=== PATIENT | male | born 1935 | race Caucasian/White ===

== ENCOUNTER 2017-01-01 17:07 | Inpatient (IN) | payer MEDICARE, MEDICAID ==
--- NOTE | 2017-01-01 19:03 | ED Physician Chart ---
Chief Complaint/HPI - Patient Information Date Seen:: 01/01/17 Time Seen:: 18:50 Chief Complaint:: increased confusion and increased aggressive behavior History of Present Illness:: At the patient's [place] [facility] facility is apparently been exhibiting increased confusion and increased aggressive behavior for last 4 days. Allergies:: Allergies Allergy/AdvReac Type Severity Reaction Status Date / Time No Known Allergies Allergy Verified 01/01/17 17:35 Vitals:: Vital Signs - 8 hr 01/01/17 17:10 Temp 97.9 F HR 67 RR 18 BP 127/49 O2 Sat % 99 Historian:: Patient Review:: Nurse's Note Reviewed, Transfer documents Reviewed Review of Systems - Review of Systems General/Constitutional: No fever, No chills Skin: No skin lesions Head: No headache Eyes: No loss of vision ENT: No earache Neck: No neck pain Cardio Vascular: No chest pain Pulmonary: No SOB GI: No nausea, No vomiting, No diarrhea Musculoskeletal: No bone or joint pain Endocrine: No polyuria Psychiatric: Prior psych history Hematopoietic: No bruising Allergic/Immuno: No urticaria Neurological: No syncope Past Medical History - Past Medical History Past Medical History: HTN, Other (anemia; dementia; Alzheimer's disease; schizophrenia; major depression; his IV) Family History: Other (not available) Social History: Care Facility Surgical History: other (unavailable) Psychiatricy History: Depression, Schizophrenia, Dementia Medication: Reviewed Family Medical History - Family Member Mother History Unknown: Yes Physical Exam - Physical Examination General/Constitutional: Well-developed, well-nourished, Alert, No distress, Non- toxic appearing Other Gen/Cons comments:: Confused; patient states the year is 2014 Head: Atraumatic Eyes: Lids, conjuctiva normal, PERRL Other Skin comments:: Maculopapular rash present on the anterior torso but not on face or neck ENMT: External ears, nose nl Neck: No nuchal rigidity Respiratory: Nl effort/Exclusion, Clear to Auscultation Cardio Vascular: RRR GI: No tenderness/rebounding/guarding, No organomegaly Extremities: Normal digits & nails Neuro/Psych: No focal deficits Misc: No paraspinal tenderness Labs/Radiology/EKG Results - Lab Results Results: Laboratory Results - last 24 hr 01/01/17 01/01/17 01/01/17 18:10 18:10 18:10 WBC 15.2 H RBC 3.81 Hgb 12.1 L Hct 35.3 L MCV 92.6 MCH 31.8 H MCHC Differential 34.4 RDW 14.5 Plt Count 191 MPV 8.0 Neutrophils % 86.1 H Lymphocytes % 7.2 L Monocytes % 5.4 Eosinophils % 1.0 Basophils % 0.3 Sodium 142 Potassium 4.3 Chloride 106 Carbon Dioxide 31.8 H Anion Gap 8.5 BUN < 2 L Creatinine 1.1 Est GFR ( Amer) TNP Est GFR (Non-Af Amer) TNP BUN/Creatinine Ratio 1.8 Glucose 87 Calcium 9.8 Valproic Acid 52.2 - Radiology Results Results: CXR negative ED Septic Shock - . Is Septic Shock (SBP<90, OR Lactate>4 mmol\L) present?: No - <6hrs of presentation: Vital Signs: Vital Signs - 8 hr 01/01/17 17:10 Temp 97.9 F HR 67 RR 18 BP 127/49 O2 Sat % 99 Reassessment (Disposition) - Reassessment Reassessment Condition:: Unchanged - Diagnosis Diagnosis:: Altered mental status; leukocytosis; scabies - Patient Disposition Admitted to:: Med/Surg Spoke to:: Dr. Salguero Admitting Medical Physician:: Dr. Salguero Condition at Disposition:: Stable, Unchanged
[2017-01-01 19:27] LABS: % BASOPHILS 0.3 % (0.0-2.0); % LYMPHOCYTES 7.2 % (20.0-50.0); % MONOCYTES 5.4 % (2.0-10.0); % NEUTROPHILS 86.1 % (40.0-80.0); HEMATOCRIT 35.3 % (39.0-49.0); HEMOGLOBIN 12.1 gm/dL (12.6-17.4); MEAN CELL VOLUME 92.6 fl (80-99); MEAN CORPUSCULAR HEMOGLOBIN 31.8 pg (27.0-31.0); MEAN CORPUSCULAR HGB CONC 34.4 pg (28.0-36.0); NEUTROPHILE ABSOLUTE 13.1 Th/cmm (1.8-8.0); PLATELET COUNT 191 Th/cmm (150-400); RED BLOOD COUNT 3.81 Mil/cmm (3.80-5.80); RED CELL DISTRIBUTION WIDTH 14.5 % (11.5-20.0)
[2017-01-01 19:34] LABS: WHITE BLOOD COUNT 15.2 Th/cmm (4.8-10.8)
[2017-01-01 19:51] LABS: ANION GAP 8.5 (7.0-16.0); CALCIUM SERUM 9.8 mg/dL (8.6-10.3); CARBON DIOXIDE 31.8 mEq/L (21.0-31.0); CHLORIDE 106 mEq/L (98-107); CREATININE - SERUM 1.1 mg/dL (0.7-1.3); GLUCOSE 87 mg/dL (70-105); POTASSIUM SERUM 4.3 mEq/L (3.5-5.1); SODIUM SERUM 142 mEq/L (136-145)
[2017-01-01 19:52] LABS: BUN - UREA NITROGEN < 2 mg/dL (7-25); BUN/CREATININE RATIO 1.8
[2017-01-01] MEDS ORDERED: Maalox 30 mL Cup PO PRN ×2 (22:18→22:20)
[2017-01-01] MEDS ORDERED: Magnesium Hydroxide (MOM) 30 mL UDC PO PRN (22:18)
[2017-01-01] MEDS ORDERED: Ipratropium Neb 0.5 mg/2.5 mL UD IH PRN (22:20)
[2017-01-01] MEDS ORDERED: guaiFENesin 200 MG/10 ML UDC PO PRN (22:20)
[2017-01-01] MEDS ORDERED: Albuterol Nebulizer 2.5mg/3mL IH PRN (22:20)
[2017-01-01] MEDS: D5-0.45NS 1,000 ML IV SCH (23:53)
[2017-01-02] MEDS: Levofloxacin 500mg/100mL 500 MG/100 ML BAG IV SCH ×2 (00:01→22:34)
[2017-01-02] MEDS ORDERED: Non-Formulary Item 1 EA (Amino Acids/Protein Hydrolys [Pro-Stat Awc Liquid] 30 ML) PO SCH (09:00)
--- NOTE | 2017-01-02 09:22 | Diagnostic Imaging Report ---
Portable chest x-ray HISTORY: Cough, leukocytosis No definite acute focal pulmonary processes are seen. Accentuation of the lower interstitial lung markings. Changes may be chronic. The overall heart size appears normal. Atherosclerotic calcification seen in the aorta. IMPRESSION: 1. No definite acute focal pulmonary processes 2. Accentuation of the lower interstitial lung markings. The findings may be chronic. 3. Atherosclerotic vascular changes
[2017-01-02] MEDS: Dextromethorphan/Quinidine 20mg/10mg Cap PO SCH ×2 (10:09→20:55)
--- NOTE | 2017-01-02 13:51 | Admit Criteria Form ---
Admit Criteria Forms - Admit Criteria Diagnosis: MENTAL STATUS CHANGE Clinical Indications for Inpatient Care (Place 'X' for any and all applicable criteria): Ongoing inpatient care may be needed for 1 or more of the following(1)(2)(3)(5)( 6): [X ]I. Suspected serious etiology (eg, medical disorder, [employer] event) of altered mental status [ ]II. Danger to self or others not manageable at lower level of care [ ]III. Grave disability (eg, inability to perform self care necessary at lower level of care) [ ]IV. Agitation or inappropriate behavior interfering with care for primary condition (eg, attempting to discontinue lines or drains prematurely, unable to cooperate with respiratory care) [ ]V. Delirium [A] [D][E] as described by 1 or more of the following(26): [ ]a) Delirium due to alcohol or sedative [F] withdrawal [ ]b) Delirium of uncertain etiology that has not responded to appropriate empiric treatment [ ]c) Delirium that prevents performance of a life-sustaining function (eg, feeding or hydrating oneself) [X ]. General contraindications and/or Inappropriate clinical situations for Observational Care in patients with Mental Status Change, when ANY ONE of the following is required: [ X]a) Prediction of prolongation of LOS based on ANY ONE of the following may be considered as a contraindication for observational care 2, 3, 4, 5, 6, 7, 8, 9, 10, 11 [ X]i) Age > 65 yrs. [ ]ii) Patient arriving by ambulance [ ]iii) Patient with high acuity [ ]iv) Patient requiring vital sign monitoring [ ]v) Patient on IV medication [ ]b) Systolic blood pressures greater than or equal to 180mmHg 3, 12 [ ]c) Patient with altered mental status including delirium and other alteration of consciousness, (3) [ ]d) Patient whose discharge disposition will be to a [facility] home or rehabilitation home should not be managed in Emergency Department Observation Unit. CMS rule requires 3 days hospital stay before such placement.3,13 [ ]e) Patient with failure to thrive due to broad array of etiologies 3,16,17 [ ]f) Inability to ambulate 3,14 Extended stay beyond goal length of stay for the primary condition may be needed until ALL of the following are present(3)(5): [ ]a) Underlying medical etiology of mental status change is absent, or has been established and adequately treated [ ]b) Danger to self or others is absent or manageable at lower level of care. [ ]c) Behavior crisis management, including physical or chemical restraints, is not required or available at lower level of car [ ]d) Substance or alcohol withdrawal is absent or manageable at lower level of care. [ ]e) Behavioral symptoms (eg, agitation, somnolence, inappropriate behavior) are absent, or are manageable at lower level of care. The original [facility] content created by [facility] has been revised. The portions of the content which have been revised are identified through the use of italic text or in bold, and [facility] has neither reviewed nor approved the modified material. All other unmodified content is copyright [facility]. Please see references footnoted in the original [facility] edition 2016 Admit Criteria Met?: Yes
[2017-01-02] MEDS: D5-0.45NS 1,000 ML IV SCH (15:38)
[2017-01-02 16:54] LABS: % BASOPHILS 0.7 % (0.0-2.0); % EOSINOPHILS 1.7 % (0.0-5.0); % LYMPHOCYTES 18.7 % (20.0-50.0); % MONOCYTES 7.9 % (2.0-10.0); HEMATOCRIT 33.3 % (39.0-49.0); HEMOGLOBIN 11.5 gm/dL (12.6-17.4); MEAN CELL VOLUME 92.6 fl (80-99); MEAN CORPUSCULAR HEMOGLOBIN 31.9 pg (27.0-31.0); MEAN CORPUSCULAR HGB CONC 34.4 pg (28.0-36.0); MEAN PLATELET VOLUME 7.8 fl; NEUTROPHILE ABSOLUTE 6.3 Th/cmm (1.8-8.0); PLATELET COUNT 167 Th/cmm (150-400)
[2017-01-02 16:55] LABS: WHITE BLOOD COUNT 8.8 Th/cmm (4.8-10.8)
[2017-01-02 17:12] LABS: ALB/GLOB RATIO 1.1 (1.0-1.8); ALKALINE PHOSPHATASE 57 U/L (34-104); ANION GAP 8.5 (7.0-16.0); BILIRUBIN,TOTAL 0.3 mg/dL (0.3-1.0); BUN - UREA NITROGEN 39 mg/dL (7-25); CALCIUM SERUM 8.9 mg/dL (8.6-10.3); CARBON DIOXIDE 30.7 mEq/L (21.0-31.0); CHLORIDE 106 mEq/L (98-107); GLUCOSE 112 mg/dL (70-105); POTASSIUM SERUM 4.2 mEq/L (3.5-5.1); SGOT 18 U/L (13-39); SGPT/ALT 15 U/L (7-52); SODIUM SERUM 141 mEq/L (136-145)
[2017-01-02 17:47] LABS: TSH 2.52 uIU/ml (0.34-5.60)
[2017-01-02] MEDS: Multivitamin w/ Minerals Tab PO SCH (20:50)
--- NOTE | 2017-01-02 21:22 | History & Physical ---
ADMIT DATE: 01/02/2017 CHIEF COMPLAINT: Increasing agitation and confusion. HISTORY OF PRESENT ILLNESS: This is an 81 years old male with history of dementia and gait instability, was admitted secondary to above complaints. The patient is noted to have elevated white count of ____ and acting like he is on ____. The patient admitted for further management. PAST MEDICAL HISTORY: As mentioned in history of present illness. PAST SURGICAL HISTORY: Denies surgeries in the past. ALLERGIES: No known drug allergies. MEDICATIONS: Melatonin, Tylenol, Nuedexta, Depakote, Colace, ____. FAMILY HISTORY: Noncontributory. SOCIAL HISTORY: The patient is a [facility] patient requiring 24-hour total care. REVIEW OF SYSTEMS: The patient is agitated and not answering questions, refusing ____. The patient has a ____ scar. PHYSICAL EXAMINATION: VITAL SIGNS: Blood pressure 110/45, respirations 18, pulse 60, temperature is 97.0, previously was ____. GENERAL: Elderly male who appears his stated age. NECK: Supple. No mass. LUNGS: Equal breath sounds with few rhonchi. HEART: Regular rate and rhythm ____ systolic ejection murmur. ABDOMEN: Soft, nontender, globular. EXTREMITIES: Positive excoriations. NEUROLOGIC: ____. LABORATORY DATA: WBC of ____, hemoglobin 12.1 and platelets 191. Sodium 142, potassium 4.3, BUN ____, creatinine 1.1. The rest of the labs are pending. ASSESSMENT AND PLAN: Increasing agitation, leukocytosis, possible sepsis, anemia, gait instability, dementia. We will continue the patient on IV hydration. We will also adjust the patient on psychotropic medication. We will empirically start the patient on IV antibiotic. We will refer the patient to Psychiatry. We will continue to follow the patient closely. We will keep the patient 1:1 for now. JOB# [id number]
[2017-01-03] MEDS: D5-0.45NS 1,000 ML IV SCH ×2 (06:16→18:16)
[2017-01-03] MEDS: Dextromethorphan/Quinidine 20mg/10mg Cap PO SCH ×2 (09:13→21:20)
--- NOTE | 2017-01-03 15:53 | Consultation ---
DATE OF CONSULTATION: 01/03/2017 PHYSICIAN REQUESTING CONSULTATION: Dr. Salguero. REASON FOR CONSULTATION: Agitated behavior. HISTORY OF PRESENT ILLNESS: This patient is an 81-year-old male admitted here for possible sepsis and psychiatric consultation is called to address the issue of the agitated behavior. Chart is reviewed. The patient is interviewed. The patient is getting easily frustrated and has a history of mood swings prior to the hospitalization. The chart from the [facility] is indicated that the patient has been on Nuedexta, Aricept, donepezil and Depakote 500 mg twice a day. The patient has been maintained with the medications. Sleep and appetite prior to the hospitalization are reported to be poor. The patient is getting easily irritable. When I tried to interview the patient, the patient is stating that he is okay and he is tired and does not want to talk about his problems. Details about the length of stay to [facility] is not known at this time. SUBSTANCE ABUSE HISTORY: None. PHYSICAL OR SEXUAL ABUSE HISTORY: None. LEGAL PROBLEMS: None at this time. STRENGTHS AND ASSETS: The patient seems to be motivated. MENTAL EXAMINATION: The patient is an 81-year-old, looking his stated age. The patient has paranoia and very guarded. Insight and judgment at this time are noted to be impaired. Impulse control seems to be limited. The patient's coping skills at this time are noted to be very poor. The patient is getting easily paranoid and is not able to provide much of information. The patient is currently on Depakote; however, has been able to tolerate the medications. DIAGNOSTIC IMPRESSION: 1. Psychotic disorder, unspecified. 2. Dementia and behavioral change secondary trait. PLAN: To continue the patient with Depakote and encouraged the patient to verbalize the concerns rather than to act out. Plan to closely monitor the patient's behavior and follow through. [facility]# [id number]
--- NOTE | 2017-01-03 21:11 | Internal Medicine Prog Note ---
Internal Medicine Subjective - Subjective Patient seen and examined:: with staff, chart reviewed Patient is:: awake, verbal, interactive Patient Complaints of:: congestion Per staff patient is:: no adverse event, eating well, combative, noncompliant, confused Internal Medicine Objective - Results Result Diagrams: 01/02/17 16:41 01/02/17 16:41 Recent Labs: Laboratory Last Values WBC 8.8 Th/cmm (4.8-10.8) D 01/02/17 16:41 RBC 3.60 Mil/cmm (3.80-5.80) L 01/02/17 16:41 Hgb 11.5 gm/dL (12.6-17.4) L 01/02/17 16:41 Hct 33.3 % (39.0-49.0) L 01/02/17 16:41 MCV 92.6 fl (80-99) 01/02/17 16:41 MCH 31.9 pg (27.0-31.0) H 01/02/17 16:41 MCHC Differential 34.4 pg (28.0-36.0) 01/02/17 16:41 RDW 14.0 % (11.5-20.0) 01/02/17 16:41 Plt Count 167 Th/cmm (150-400) 01/02/17 16:41 MPV 7.8 fl 01/02/17 16:41 Neutrophils % 71.0 % (40.0-80.0) 01/02/17 16:41 Lymphocytes % 18.7 % (20.0-50.0) L 01/02/17 16:41 Monocytes % 7.9 % (2.0-10.0) 01/02/17 16:41 Eosinophils % 1.7 % (0.0-5.0) 01/02/17 16:41 Basophils % 0.7 % (0.0-2.0) 01/02/17 16:41 Sodium 141 mEq/L (136-145) 01/02/17 16:41 Potassium 4.2 mEq/L (3.5-5.1) 01/02/17 16:41 Chloride 106 mEq/L (98-107) 01/02/17 16:41 Carbon Dioxide 30.7 mEq/L (21.0-31.0) 01/02/17 16:41 Anion Gap 8.5 (7.0-16.0) 01/02/17 16:41 BUN 39 mg/dL (7-25) H 01/02/17 16:41 Creatinine 1.0 mg/dL (0.7-1.3) 01/02/17 16:41 Est GFR ( Amer) TNP 01/02/17 16:41 Est GFR (Non-Af Amer) TNP 01/02/17 16:41 BUN/Creatinine Ratio 39.0 01/02/17 16:41 Glucose 112 mg/dL (70-105) H 01/02/17 16:41 Whole Bld Lactic Acid 1.27 mmol/L (0.60-1.99) 01/02/17 16:41 Calcium 8.9 mg/dL (8.6-10.3) 01/02/17 16:41 Magnesium 2.0 mg/dL (1.9-2.7) 01/02/17 16:41 Total Bilirubin 0.3 mg/dL (0.3-1.0) 01/02/17 16:41 AST 18 U/L (13-39) 01/02/17 16:41 ALT 15 U/L (7-52) 01/02/17 16:41 Alkaline Phosphatase 57 U/L (34-104) 01/02/17 16:41 Ammonia 46 umol/L (16-53) 01/02/17 16:41 B-Natriuretic Peptide 416.0 pg/mL (5.0-100.0) H 01/02/17 16:41 Total Protein 6.0 gm/dL (6.0-8.3) 01/02/17 16:41 Albumin 3.1 gm/dL (4.2-5.5) L 01/02/17 16:41 Globulin 2.9 gm/dL 01/02/17 16:41 Albumin/Globulin Ratio 1.1 (1.0-1.8) 01/02/17 16:41 TSH 2.52 uIU/ml (0.34-5.60) 01/02/17 16:41 Valproic Acid 52.2 ug/mL (50.0-100.0) 01/01/17 18:10 - Physical Exam Vitals and I&O: Vital Signs Temp 97.8 F 01/03/17 04:00 Pulse 72 01/03/17 04:00 Resp 18 01/03/17 20:00 BP 108/52 01/03/17 04:00 Pulse Ox 98 01/03/17 04:00 Intake & Output 01/03/17 01/03/17 01/04/17 06:59 18:59 06:59 Intake Total 1220 Balance 1220 Intake: Intake, IV Amount 1100 D5-0.45NS 1,000 ml @ 75 1000 mls/hr IV .[id number] [facility] Rx #:[id number] Levofloxacin 500mg/100mL 100 500 mg In 100 ml @ 100 mls/hr IV Q24HR [facility] Rx#: [id number] Oral 120 Other: # Voids 3 # Bowel Movements 1 Active Medications: Current Medications Acetaminophen (Tylenol) 650 mg PO Q4HR PRN PRN Reason: Pain or Fever >101 Stop: 03/02/17 22:19 Last Admin: 01/02/17 00:33 Dose: 650 mg Al Hydrox/Mg Hydrox/Simethicone (Maalox) 30 ml PO Q6HR PRN PRN Reason: GI DISTRESS Stop: 03/02/17 22:19 Albuterol Sulfate (Albuterol 2.5mg/3ml Neb Ud) 2.5 mg IH Q2HR PRN PRN Reason: Shortness of Breath or Wheeze Stop: 03/02/17 22:19 Dextromethorphan/Quinidine (Nuedexta 20mg-10mg) 1 cap PO Q12HR [facility] Stop: 03/03/17 08:59 Last Admin: 01/03/17 09:13 Dose: 1 cap Divalproex Sodium (Depakote Dr) 500 mg PO BID [facility] PRN Reason: Protocol Stop: 03/03/17 08:59 Last Admin: 01/03/17 18:15 Dose: 500 mg Docusate Sodium (Colace) 200 mg PO HS [facility] Stop: 03/03/17 20:59 Last Admin: 01/02/17 20:49 Dose: Not Given Donepezil HCl (Aricept) 5 mg PO QPM [facility] Stop: 03/03/17 16:59 Last Admin: 01/03/17 18:15 Dose: 5 mg Guaifenesin (Robitussin) 200 mg PO Q4HR PRN PRN Reason: Cough or Congestion Stop: 03/02/17 22:19 Last Admin: 01/02/17 00:33 Dose: 200 mg Heparin Sodium (Porcine) (Heparin) 5,000 units SUBQ Q12HR [facility] Stop: 03/03/17 20:59 Last Admin: 01/03/17 09:13 Dose: Not Given Levofloxacin (Levaquin Pb) 500 mg in 100 mls @ 100 mls/hr IV Q24HR [facility] Stop: 03/02/17 22:59 Last Infusion: 01/02/17 23:34 Dose: Infused Dextrose/Sodium Chloride (D5-0.45ns) 1,000 mls @ 50 mls/hr IV .Q20H [facility] Stop: 03/04/17 21:07 Ipratropium [place] (Atrovent Neb 0.5mg/2.5ml) 0.5 mg IH Q2HR PRN PRN Reason: Shortness of Breath or Wheeze Stop: 03/02/17 22:19 Magnesium Hydroxide (Milk Of Magnesia) 30 ml PO HS PRN PRN Reason: Constipation Stop: 03/02/17 22:17 Ondansetron HCl (Zofran) 4 mg IV Q8H PRN PRN Reason: Nausea / Vomiting Stop: 03/02/17 22:19 General: demented HEENT: NC/AT, PERRLA Neck: Supple Lungs: congested, rales Cardiovascular: RRR, Normal S1, Normal S2 Abdomen: soft non-tender, globular, distended Extremities: excoriation, contracture Neurological: no change, disorganized, unable to follow command Internal Medicine Assmt/Plan - Assessment Assessment: Increasing agitation, leukocytosis, possible sepsis, anemia, gait instability, dementia. ri - Plan Plan: cont on iv abx \cont on iv hydration adjust psych meds wwill confer w dr mirela reddy rn Nutritional Asmnt/Malnutr-PDOC - Dietary Evaluation Malnutrition Findings (Please click <Entered> for more info): Nutritional Asmnt/Malnutrition Start: 01/02/17 14: 11 Text: Status: Complete Freq: Document 01/02/17 15:14 GSUN (Rec: 01/02/17 16:01 [email or web address]) Nutritional Asmnt/Malnutrition Patient General Information Nutritional Screening High Risk Screening Diagnosis Reason for visit: possible sepsis. ER: altered mental, leukocytosis, scabie Pertinent Medical Hx/Surgical Hx ER: HTN, anemia, dementia Alzheimer's disease, schizophrenia, major depression Subjective Information 81 year old male from SNF. Poor historian, responded to RD's name call, however did not provide meaningful response. Pt appeared overall thin, moderate fat and muscle wasting to legs and shoulders. 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 Avg PO intake 75-100% of meals, meeting nutritional needs. Current Diet Order/ Nutrition Support [facility] chopped, NCS Pertinent Medications Maalox, D5, Colace, MOM, Zofran Pertinent Labs Reviewed. Nutritional Hx/Data Height 1.78 m Height (Calculated Centimeters) 177.8 Current Weight (lbs) 59.874 kg Weight (Calculated Kilograms) 59.9 Weight (Calculated Grams) 73696.2 [place] Body Weight 166lb Weight Status Underweight GI Symptoms Usual diet at home [place]: [facility] soft Skin Integrity/Comment: Adalid Gleason. 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 muscle /fat) Fluid: ml 1888-2265ml (1ml/kcal) Nutritional Problem 1. Problem Problem Increased prot and kcal needs related to Etiology possible hypermetabolic state aeb, underweight for age Signs/Symptoms: possible sepsis, BMI 18.9, moderate muscle/fat depletion Intervention/Recommendation Comments 1. Continue chopped diet. Avg PO intake is adequate. 2. Recommend Prosource QD for additional protein for muscle/ fat depletion prevention. Pt recieves Prosource equivalent at [facility]. Expected Outcomes/Goals Expected Outcomes/Goals 1. PO intake continue to meet at least 100% of estimated nutritional needs.
[2017-01-03] MEDS: Multivitamin w/ Minerals Tab PO SCH (21:21)
[2017-01-03] MEDS: Levofloxacin 500mg/100mL 500 MG/100 ML BAG IV SCH (22:14)
[2017-01-04] MEDS: D5-0.45NS 1,000 ML IV SCH ×2 (04:28→17:07)
[2017-01-04] MEDS: Dextromethorphan/Quinidine 20mg/10mg Cap PO SCH ×2 (08:04→21:02)
--- NOTE | 2017-01-04 15:30 | Internal Medicine Prog Note ---
Internal Medicine Subjective - Subjective Patient seen and examined:: with staff, chart reviewed Patient is:: awake, verbal, interactive Patient Complaints of:: congestion Per staff patient is:: no adverse event, noncompliant, confused Internal Medicine Objective - Results Result Diagrams: 01/02/17 16:41 01/02/17 16:41 Recent Labs: Laboratory Last Values WBC 8.8 Th/cmm (4.8-10.8) D 01/02/17 16:41 RBC 3.60 Mil/cmm (3.80-5.80) L 01/02/17 16:41 Hgb 11.5 gm/dL (12.6-17.4) L 01/02/17 16:41 Hct 33.3 % (39.0-49.0) L 01/02/17 16:41 MCV 92.6 fl (80-99) 01/02/17 16:41 MCH 31.9 pg (27.0-31.0) H 01/02/17 16:41 MCHC Differential 34.4 pg (28.0-36.0) 01/02/17 16:41 RDW 14.0 % (11.5-20.0) 01/02/17 16:41 Plt Count 167 Th/cmm (150-400) 01/02/17 16:41 MPV 7.8 fl 01/02/17 16:41 Neutrophils % 71.0 % (40.0-80.0) 01/02/17 16:41 Lymphocytes % 18.7 % (20.0-50.0) L 01/02/17 16:41 Monocytes % 7.9 % (2.0-10.0) 01/02/17 16:41 Eosinophils % 1.7 % (0.0-5.0) 01/02/17 16:41 Basophils % 0.7 % (0.0-2.0) 01/02/17 16:41 Sodium 141 mEq/L (136-145) 01/02/17 16:41 Potassium 4.2 mEq/L (3.5-5.1) 01/02/17 16:41 Chloride 106 mEq/L (98-107) 01/02/17 16:41 Carbon Dioxide 30.7 mEq/L (21.0-31.0) 01/02/17 16:41 Anion Gap 8.5 (7.0-16.0) 01/02/17 16:41 BUN 39 mg/dL (7-25) H 01/02/17 16:41 Creatinine 1.0 mg/dL (0.7-1.3) 01/02/17 16:41 Est GFR ( Amer) TNP 01/02/17 16:41 Est GFR (Non-Af Amer) TNP 01/02/17 16:41 BUN/Creatinine Ratio 39.0 01/02/17 16:41 Glucose 112 mg/dL (70-105) H 01/02/17 16:41 Whole Bld Lactic Acid 1.27 mmol/L (0.60-1.99) 01/02/17 16:41 Calcium 8.9 mg/dL (8.6-10.3) 01/02/17 16:41 Magnesium 2.0 mg/dL (1.9-2.7) 01/02/17 16:41 Total Bilirubin 0.3 mg/dL (0.3-1.0) 01/02/17 16:41 AST 18 U/L (13-39) 01/02/17 16:41 ALT 15 U/L (7-52) 01/02/17 16:41 Alkaline Phosphatase 57 U/L (34-104) 01/02/17 16:41 Ammonia 46 umol/L (16-53) 01/02/17 16:41 B-Natriuretic Peptide 416.0 pg/mL (5.0-100.0) H 01/02/17 16:41 Total Protein 6.0 gm/dL (6.0-8.3) 01/02/17 16:41 Albumin 3.1 gm/dL (4.2-5.5) L 01/02/17 16:41 Globulin 2.9 gm/dL 01/02/17 16:41 Albumin/Globulin Ratio 1.1 (1.0-1.8) 01/02/17 16:41 TSH 2.52 uIU/ml (0.34-5.60) 01/02/17 16:41 Valproic Acid 52.2 ug/mL (50.0-100.0) 01/01/17 18:10 - Physical Exam Vitals and I&O: Vital Signs Temp 97.2 F 01/04/17 08:00 Pulse 65 01/04/17 08:00 Resp 18 01/04/17 08:10 BP 112/60 01/04/17 08:00 Pulse Ox 98 01/04/17 08:00 Intake & Output 01/03/17 01/04/17 01/04/17 18:59 06:59 18:59 Intake Total 1080 Balance 1080 Intake: Oral 1080 Other: # Voids 5 3 # Bowel Movements 4 3 Active Medications: Current Medications Acetaminophen (Tylenol) 650 mg PO Q4HR PRN PRN Reason: Pain or Fever >101 Stop: 03/02/17 22:19 Last Admin: 01/04/17 05:25 Dose: 650 mg Al Hydrox/Mg Hydrox/Simethicone (Maalox) 30 ml PO Q6HR PRN PRN Reason: GI DISTRESS Stop: 03/02/17 22:19 Albuterol Sulfate (Albuterol 2.5mg/3ml Neb Ud) 2.5 mg IH Q2HR PRN PRN Reason: Shortness of Breath or Wheeze Stop: 03/02/17 22:19 Dextromethorphan/Quinidine (Nuedexta 20mg-10mg) 1 cap PO Q12HR [facility] Stop: 03/03/17 08:59 Last Admin: 01/04/17 08:04 Dose: 1 cap Divalproex Sodium (Depakote Dr) 500 mg PO BID [facility] PRN Reason: Protocol Stop: 03/03/17 08:59 Last Admin: 01/04/17 08:04 Dose: 500 mg Docusate Sodium (Colace) 200 mg PO HS [facility] Stop: 03/03/17 20:59 Last Admin: 01/03/17 21:20 Dose: 200 mg Donepezil HCl (Aricept) 5 mg PO QPM [facility] Stop: 03/03/17 16:59 Last Admin: 01/03/17 18:15 Dose: 5 mg Guaifenesin (Robitussin) 200 mg PO Q4HR PRN PRN Reason: Cough or Congestion Stop: 03/02/17 22:19 Last Admin: 01/02/17 00:33 Dose: 200 mg Heparin Sodium (Porcine) (Heparin) 5,000 units SUBQ Q12HR [facility] Stop: 03/03/17 20:59 Last Admin: 01/04/17 09:12 Dose: Not Given Levofloxacin (Levaquin Pb) 500 mg in 100 mls @ 100 mls/hr IV Q24HR [facility] Stop: 03/02/17 22:59 Last Admin: 01/03/17 22:14 Dose: 100 mls/hr Dextrose/Sodium Chloride (D5-0.45ns) 1,000 mls @ 50 mls/hr IV .Q20H [facility] Stop: 03/04/17 21:07 Last Admin: 01/04/17 04:28 Dose: 50 mls/hr Ipratropium [place] (Atrovent Neb 0.5mg/2.5ml) 0.5 mg IH Q2HR PRN PRN Reason: Shortness of Breath or Wheeze Stop: 03/02/17 22:19 Magnesium Hydroxide (Milk Of Magnesia) 30 ml PO HS PRN PRN Reason: Constipation Stop: 03/02/17 22:17 Ondansetron HCl (Zofran) 4 mg IV Q8H PRN PRN Reason: Nausea / Vomiting Stop: 03/02/17 22:19 General: demented HEENT: NC/AT, PERRLA Neck: Supple, No JVD Lungs: congested, rales Cardiovascular: RRR, Normal S1, Normal S2 Abdomen: soft non-tender, globular, positive bowel sound Extremities: excoriation Neurological: no change Internal Medicine Assmt/Plan - Assessment Assessment: Increasing agitation, leukocytosis, possible sepsis, anemia, gait instability, dementia. ri - Plan Plan: cont on iv abx \cont on iv hydration adjust psych meds wwill confer w dr mirela reddy rn Nutritional Asmnt/Malnutr-PDOC - Dietary Evaluation Malnutrition Findings (Please click <Entered> for more info): Nutritional Asmnt/Malnutrition Start: 01/02/17 14: 11 Text: Status: Complete Freq: Document 01/02/17 15:14 GSUN (Rec: 01/02/17 16:01 BENJIE [email or web address]) Nutritional Asmnt/Malnutrition Patient General Information Nutritional Screening High Risk Screening Diagnosis Reason for visit: possible sepsis. ER: altered mental, leukocytosis, scabie Pertinent Medical Hx/Surgical Hx ER: HTN, anemia, dementia Alzheimer's disease, schizophrenia, major depression Subjective Information 81 year old male from SNF. Poor historian, responded to RD's name call, however did not provide meaningful response. Pt appeared overall thin, moderate fat and muscle wasting to legs and shoulders. [employer] ASSEMBLER at bedside stated pt with good appetite, asked for breakfast, no difficulties with current texture. Avg PO intake 75-100% of meals, meeting nutritional needs. Current Diet Order/ Nutrition Support [facility] chopped, NCS Pertinent Medications Maalox, D5, Colace, MOM, Zofran Pertinent Labs Reviewed. Nutritional Hx/Data Height 1.78 m Height (Calculated Centimeters) 177.8 Current Weight (lbs) 59.874 kg Weight (Calculated Kilograms) 59.9 Weight (Calculated Grams) 07656.2 [place] Body Weight 166lb Weight Status Underweight GI Symptoms Usual diet at home Shaista : [facility] soft Skin Integrity/Comment: Adalid Gleason. mathematician: generalized rashes Current %PO Good (75-100%) Estimated Nutritional Goals Calories/Kcals/Kg IBW 166lb/75.5kg Kcals Calculated 1888-2265kcal (25-30kcal/kg) Protein g/kg: IBW Protein Calculated 76-113g (1-1.5g/kg, reason of visit: possible sepsis? muscle /fat) Fluid: ml 1888-2265ml (1ml/kcal) Nutritional Problem 1. Problem Problem Increased prot and kcal needs related to Etiology possible hypermetabolic state aeb, underweight for age Signs/Symptoms: possible sepsis, BMI 18.9, moderate muscle/fat depletion Intervention/Recommendation Comments 1. Continue chopped diet. Avg PO intake is adequate. 2. Recommend Prosource QD for additional protein for muscle/ fat depletion prevention. Pt recieves Prosource equivalent at SNF. Expected Outcomes/Goals Expected Outcomes/Goals 1. PO intake continue to meet at least 100% of estimated nutritional needs.
[2017-01-04] MEDS: Multivitamin w/ Minerals Tab PO SCH (21:02)
[2017-01-04] MEDS: Levofloxacin 500mg/100mL 500 MG/100 ML BAG IV SCH (23:34)
[2017-01-05] MEDS: Dextromethorphan/Quinidine 20mg/10mg Cap PO SCH (09:27)
--- NOTE | 2017-01-06 00:37 | Discharge Summary ---
DATE OF DISCHARGE: 01/05/2017 CHIEF COMPLAINT: Increasing agitation and confusion. FINAL DIAGNOSES: Increasing agitation, leukocytosis, possible sepsis, anemia, gait instability, dementia and noncompliance. HISTORY OF PRESENT ILLNESS: This is an 81-year-old male with history of dementia, gait instability, was admitted secondary to above complaints. The patient noted to have elevated white count of 13,000 and admitted for management. PHYSICAL EXAMINATION: VITAL SIGNS: Blood pressure 111/56, respirations 18, pulse 60 and temperature is 97.2. GENERAL: Elderly male, appears stated age. NECK: Supple. No mass. LUNGS: Equal breath sounds, few rhonchi. HEART: Regular rate and rhythm without systolic ejection murmur. ABDOMEN: Soft and nontender. EXTREMITIES: Positive excoriations. HOSPITAL COURSE: The patient was admitted to medical floor, empirically started on IV antibiotics and aggressive rehydration. White count dropped from 15 to 8.8. The patient has remained stable, not ____ the patient cleared for discharge, was seen by Dr. Frost for psyche. CONDITION ON DISCHARGE: ____ sensory. DISCHARGE INSTRUCTIONS: The patient to continue current medical regimen. JOB# [id number]
== END 2017-01-05 18:10 | DRG 871 ==
LOC: ER 17:07 → MSI 22:00
PROVIDERS: ADMIT Internal Medicine; ATTEND Internal Medicine
DX: A41.9 Sepsis, unspecified organism (principal); E43 Unspecified severe protein-calorie malnutrition; G30.9 Alzheimer's disease, unspecified; D64.9 Anemia, unspecified; F02.81 Dementia in other diseases classified elsewhere, unspecified severity, with behavioral disturbance; I10 Essential (primary) hypertension; B86 Scabies; Z68.1 Body mass index [BMI] 19.9 or less, adult; R26.9 Unspecified abnormalities of gait and mobility; F29 Unspecified psychosis not due to a substance or known physiological condition; F20.9 Schizophrenia, unspecified; F32.9 Major depressive disorder, single episode, unspecified; Z91.14 Patient's other noncompliance with medication regimen
CPT/HCPCS: 36415-UA; 71010-TC; 80048-TC; 80053-TC; 80164-TC; 82140-TC; 83605; 83735-TC; 83880-TC; 84443-TC; 85025-TC; 93005; 94760; J1644; J1956; Z7610

== ENCOUNTER 2017-11-26 16:55 | Inpatient (IN) | payer MEDICARE, MEDICAID ==
[2017-11-26 21:04] VITALS: BP 114/61
[2017-11-26] MEDS ORDERED: Magnesium Hydroxide (MOM) 30 mL UDC PO PRN (21:05)
[2017-11-26] MEDS ORDERED: Maalox 30 mL Cup PO PRN (21:05)
[2017-11-27] MEDS ORDERED: Multivitamin Tab PO SCH (09:00)
--- NOTE | 2017-11-27 12:42 | Psychosocial Evaluation ---
DATE OF SERVICE: JUSTIFICATION FOR HOSPITALIZATION: The patient is paranoid, refusing medications, assaultive towards staff. CHIEF COMPLAINT: "I don't know why I am here." HISTORY OF PRESENT ILLNESS: An 82-year-old male with history of multiple medical problems, hypertension, hyperlipidemia, Alzheimer dementia, was apparently refusing medications, decompensating, paranoid, agitated, violent, assaulting staff. The patient not answering any questions appropriately. PAST PSYCHIATRIC HISTORY: Dementia with behaviors. The patient was seen by last year as a consultation request due to agitation, diagnosed at that time with the dementia and psychosis, NOS. SOCIAL HISTORY: The patient tells me his date of . He tells me he was born in [place]. It is unclear if he is . He states he has one child. MENTAL STATUS EXAMINATION: Stated age, confused, disoriented per staff, somewhat agitated. No overt SI, seems to be having some paranoia. Poor insight, poor judgment, very poor impulse control. PROVISIONAL DIAGNOSES: Dementia with behaviors; psychosis, unspecified; mood, unspecified; anxiety, unspecified. Under medical, please see full H and P. ASSESSMENT: The patient requiring inpatient hospitalization, paranoia, combative, violent, agitated. PLAN: Continue Seroquel. Treatment plan includes group as well as milieu therapy. We will also add Namenda to his medication regimen. CONDITIONS FOR DISCHARGE: Improved mood, improved control of any psychotic or violent symptoms. [facility]# [id number]
[2017-11-27] MEDS ORDERED: Maalox 30 mL Cup PO PRN (12:45)
[2017-11-27] MEDS ORDERED: guaiFENesin 200 MG/10 ML UDC PO PRN (12:45)
[2017-11-27] MEDS ORDERED: Magnesium Hydroxide (MOM) 30 mL UDC PO PRN (12:45)
[2017-11-27] MEDS ORDERED: Ipratropium Neb 0.5 mg/2.5 mL UD HHN PRN (12:45)
[2017-11-27] MEDS ORDERED: Albuterol Nebulizer 2.5mg/3mL HHN PRN (12:45)
--- NOTE | 2017-11-27 12:46 | Internal Medicine Prog Note ---
Internal Medicine Subjective - Subjective Service Date: 11/27/17 (hnp dictated [id number]) Internal Medicine Objective - Physical Exam Vitals and I&O: Vital Signs Temp 97 F 11/27/17 06:59 Pulse 78 11/27/17 06:59 Resp 18 11/27/17 06:59 BP 128/66 11/27/17 06:59 Pulse Ox 97 11/27/17 06:59 Intake & Output 11/26/17 11/27/17 11/27/17 18:59 06:59 18:59 Intake Total 120 Balance 120 Intake: Oral 120 Other: # Voids 3 Active Medications: Current Medications Acetaminophen (Tylenol) 650 mg PO Q4HR PRN PRN Reason: Mild Pain / Temp above 100 Stop: 01/25/18 21:04 Al Hydrox/Mg Hydrox/Simethicone (Maalox) 30 ml PO Q4HR PRN PRN Reason: GI DISTRESS Stop: 01/25/18 21:04 Donepezil HCl (Aricept) 10 mg PO HS [facility] Stop: 01/25/18 20:59 Last Admin: 11/26/17 20:08 Dose: Not Given Lorazepam (Ativan) 0.5 mg PO Q4HR PRN; Protocol PRN Reason: Anxiety Stop: 12/26/17 21:04 Magnesium Hydroxide (Milk Of Magnesia) 30 ml PO HS PRN PRN Reason: Constipation Memantine (Namenda) 5 mg PO DAILY [facility] Stop: 01/27/18 08:59 Multivitamins/Vitamin C (Theragran) 1 tab PO DAILY [facility] Stop: 01/26/18 08:59 Last Admin: 11/27/17 08:55 Dose: Not Given Quetiapine Fumarate (Seroquel) 25 mg PO BID [facility] PRN Reason: Protocol Stop: 01/26/18 08:59 Last Admin: 11/27/17 09:41 Dose: Not Given Zolpidem Tartrate (Ambien) 5 mg PO HS PRN PRN Reason: Insomnia Stop: 01/25/18 21:04 Internal Medicine Assmt/Plan - Assessment Assessment: psychosis gait instability generalized weakness dementia
--- NOTE | 2017-11-27 14:37 | History & Physical ---
ADMIT DATE: 11/27/2017 DICTATED FOR: Dr. Thony Salguero. CHIEF COMPLAINT: Psychosis. HISTORY OF PRESENT ILLNESS: This is an 82-year-old male who is a halfway resident, who is a direct admission to the Geropsych Unit due to agitation towards nursing staff. PAST MEDICAL HISTORY: Dementia, gait instability. PAST SURGICAL HISTORY: None. ALLERGIES: No drug allergies. MEDICATIONS: Seroquel, Ambien, Namenda, Aricept. FAMILY HISTORY: Noncontributory. SOCIAL HISTORY: The patient is a halfway resident, requiring 24-hour nursing care. REVIEW OF SYSTEMS: Unable to obtain. Patient refuses to speak. PHYSICAL EXAMINATION: GENERAL: This is an elderly male, appears thin, in no apparent distress. VITAL SIGNS: Temperature 97, heart rate 78, blood pressure 128/66, respiration 18, O2 97%. HEENT: Head: Normocephalic, atraumatic. NECK: Supple. No mass. LUNGS: Clear bilaterally. CARDIOVASCULAR: Regular rate and rhythm. ABDOMEN: Soft, nontender. LABORATORY DATA: There is no recent laboratory data. ASSESSMENT: Psychosis, generalized weakness, gait instability, dementia. PLAN: We will get laboratory results on this patient for hemoglobin A1c and lipid panel. We will continue to follow this patient. [facility]# [id number]
[2017-11-27] MEDS: Multivitamin w/ Minerals Tab PO SCH (21:08)
--- NOTE | 2017-11-28 08:10 | Progress Notes ---
DATE: 11/28/2017 The patient is currently in the hospital, refusing to speak with me, "get out," "I don't like you," "you son of the bitch." The patient yelling, screaming, highly agitated. The patient with history of dementia, still unruly, decompensating, had apparently been refusing care and treatment. ASSESSMENT: The patient isolative, yelling, rude, irritable, cursing at me. PLAN: We will continue to monitor given his ongoing symptoms, unruly behaviors and need for constant supervision and redirection, is not safe for discharge. JOB# [id number]
--- NOTE | 2017-11-28 15:18 | Internal Medicine Prog Note ---
Internal Medicine Subjective - Subjective Patient seen and examined:: with staff, chart reviewed Patient is:: awake, non-verbal, non-interactive, in bed, confused, stares blankly Per staff patient has:: no adverse event, no episodes of fall, poor appetite, noncompliant, tolerating meds Internal Medicine Objective - Physical Exam Vitals and I&O: Vital Signs Temp 98.6 F 11/28/17 07:18 Pulse 62 11/28/17 07:51 Resp 18 11/28/17 07:51 BP 131/71 11/28/17 07:18 Pulse Ox 95 11/28/17 07:51 Intake & Output 11/27/17 11/28/17 11/28/17 18:59 06:59 18:59 Intake Total 600 320 Balance 600 320 Intake: Oral 600 320 Other: # Voids 2 2 Active Medications: Current Medications Acetaminophen (Tylenol) 650 mg PO Q4HR PRN PRN Reason: Mild Pain / Temp above 100 Stop: 01/25/18 21:04 Al Hydrox/Mg Hydrox/Simethicone (Maalox) 30 ml PO Q4HR PRN PRN Reason: GI DISTRESS Stop: 01/25/18 21:04 Al Hydrox/Mg Hydrox/Simethicone (Maalox) 30 ml PO Q6HR PRN PRN Reason: GI DISTRESS Stop: 01/26/18 12:44 Albuterol Sulfate (Albuterol 2.5mg/3ml Neb Ud) 2.5 mg HHN Q2HR PRN PRN Reason: Shortness of Breath or Wheeze Stop: 01/26/18 12:44 Docusate Sodium (Colace) 200 mg PO HS [facility] Stop: 01/26/18 20:59 Last Admin: 11/27/17 21:08 Dose: Not Given Donepezil HCl (Aricept) 10 mg PO HS [facility] Stop: 01/25/18 20:59 Last Admin: 11/27/17 21:08 Dose: Not Given Guaifenesin (Robitussin) 200 mg PO Q4HR PRN PRN Reason: Cough or Congestion Stop: 01/26/18 12:44 Ipratropium [place] (Atrovent Neb 0.5mg/2.5ml) 0.5 mg HHN Q2HR PRN PRN Reason: Shortness of Breath or Wheeze Stop: 01/26/18 12:44 Lorazepam (Ativan) 0.5 mg PO Q4HR PRN; Protocol PRN Reason: Anxiety Stop: 12/26/17 21:04 Magnesium Hydroxide (Milk Of Magnesia) 30 ml PO HS PRN PRN Reason: Constipation Memantine (Namenda) 5 mg PO DAILY [facility] Stop: 01/27/18 08:59 Last Admin: 11/28/17 08:38 Dose: 5 mg Quetiapine Fumarate (Seroquel) 25 mg PO BID [facility] PRN Reason: Protocol Stop: 01/26/18 08:59 Last Admin: 11/28/17 08:38 Dose: 25 mg Zolpidem Tartrate (Ambien) 5 mg PO HS PRN PRN Reason: Insomnia Stop: 01/25/18 21:04 Last Admin: 11/27/17 21:09 Dose: 5 mg General: lethargic, demented, appears older, NAD HEENT: NC/AT, PERRLA Neck: Supple, No JVD, deformity Cardiovascular: RRR, Normal S1, Normal S2, with murmur Abdomen: soft, thin, non-distended, positive bowel sound Extremities: excoriation, deformity Neurological: no change, lethargic, bedbound Internal Medicine Assmt/Plan - Assessment Assessment: psychosis gait instability generalized weakness dementia malnutrition - Plan Plan: cont on fall precaution aspirtation precautionn dvt and gastritis prophylaxis barry wyatt
[2017-11-28] MEDS: Multivitamin w/ Minerals Tab PO SCH (21:11)
--- NOTE | 2017-11-29 08:45 | Progress Notes ---
DATE: 11/29/2017 The patient is currently in the hospital, refusing to speak with me, "I don't want to talk, get out" "you son of a bitch," still highly agitated, confused, disoriented, not really answering any questions appropriately. The patient remains highly impulsive and unpredictable. Medications were noted. ASSESSMENT: The patient isolative, irritable, still cursing, agitated, not safe for a lower level of care. He remains unruly. PLAN: We will continue to monitor for any overt medication side effects. JOB# [id number]
--- NOTE | 2017-11-29 10:24 | Internal Medicine Prog Note ---
Internal Medicine Subjective - Subjective Patient seen and examined:: with staff, chart reviewed Patient is:: awake, non-verbal, non-interactive, in bed, confused, stares blankly Per staff patient has:: no adverse event, no episodes of fall, poor appetite, noncompliant, tolerating meds Internal Medicine Objective - Physical Exam Vitals and I&O: Vital Signs Temp 97.3 F 11/28/17 15:29 Pulse 63 11/29/17 07:50 Resp 18 11/29/17 07:50 BP 119/60 11/28/17 15:29 Pulse Ox 96 11/29/17 07:50 Intake & Output 11/28/17 11/29/17 11/29/17 18:59 06:59 18:59 Intake Total 1220 Balance 1220 Intake: Oral 1220 Other: # Voids 3 # Bowel Movements 1 Active Medications: Current Medications Acetaminophen (Tylenol) 650 mg PO Q4HR PRN PRN Reason: Mild Pain / Temp above 100 Stop: 01/25/18 21:04 Al Hydrox/Mg Hydrox/Simethicone (Maalox) 30 ml PO Q4HR PRN PRN Reason: GI DISTRESS Stop: 01/25/18 21:04 Al Hydrox/Mg Hydrox/Simethicone (Maalox) 30 ml PO Q6HR PRN PRN Reason: GI DISTRESS Stop: 01/26/18 12:44 Albuterol Sulfate (Albuterol 2.5mg/3ml Neb Ud) 2.5 mg HHN Q2HR PRN PRN Reason: Shortness of Breath or Wheeze Stop: 01/26/18 12:44 Docusate Sodium (Colace) 200 mg PO HS [facility] Stop: 01/26/18 20:59 Last Admin: 11/28/17 21:10 Dose: 200 mg Donepezil HCl (Aricept) 10 mg PO HS [facility] Stop: 01/25/18 20:59 Last Admin: 11/28/17 21:12 Dose: 10 mg Guaifenesin (Robitussin) 200 mg PO Q4HR PRN PRN Reason: Cough or Congestion Stop: 01/26/18 12:44 Ipratropium [place] (Atrovent Neb 0.5mg/2.5ml) 0.5 mg HHN Q2HR PRN PRN Reason: Shortness of Breath or Wheeze Stop: 01/26/18 12:44 Lorazepam (Ativan) 0.5 mg PO Q4HR PRN; Protocol PRN Reason: Anxiety Stop: 12/26/17 21:04 Magnesium Hydroxide (Milk Of Magnesia) 30 ml PO HS PRN PRN Reason: Constipation Memantine (Namenda) 5 mg PO DAILY [facility] Stop: 01/27/18 08:59 Last Admin: 11/29/17 09:15 Dose: 5 mg Quetiapine Fumarate (Seroquel) 25 mg PO BID [facility] PRN Reason: Protocol Stop: 01/26/18 08:59 Last Admin: 11/29/17 09:15 Dose: 25 mg Zolpidem Tartrate (Ambien) 5 mg PO HS PRN PRN Reason: Insomnia Stop: 01/25/18 21:04 Last Admin: 11/28/17 21:12 Dose: 5 mg General: lethargic, demented, appears older, NAD HEENT: NC/AT, PERRLA Neck: Supple, No JVD, deformity Cardiovascular: RRR, Normal S1, Normal S2, with murmur Abdomen: soft, thin, non-distended, positive bowel sound Extremities: excoriation, deformity Neurological: no change, lethargic, bedbound Internal Medicine Assmt/Plan - Assessment Assessment: psychosis gait instability generalized weakness dementia malnutrition - Plan Plan: cont on fall precaution aspirtation precautionn dvt and gastritis prophylaxis barry rn
[2017-11-29] MEDS: Multivitamin w/ Minerals Tab PO SCH (21:26)
--- NOTE | 2017-11-30 11:30 | Internal Medicine Prog Note ---
Internal Medicine Subjective - Subjective Service Date: 11/30/17 Patient is:: awake, non-verbal, non-interactive, in bed, confused, stares blankly Per staff patient has:: no adverse event, no episodes of fall, poor appetite, noncompliant, tolerating meds Internal Medicine Objective - Physical Exam Vitals and I&O: Vital Signs Temp 97.8 F 11/30/17 05:59 Pulse 72 11/30/17 08:29 Resp 18 11/30/17 08:30 BP 133/74 11/30/17 05:59 Pulse Ox 95 11/30/17 08:29 Intake & Output 11/29/17 11/30/17 11/30/17 18:59 06:59 18:59 Intake Total 244 Output Total 2 Balance 242 Intake: Oral 244 Output: Urine 1 Stool 1 Other: # Voids 1 Active Medications: Current Medications Acetaminophen (Tylenol) 650 mg PO Q4HR PRN PRN Reason: Mild Pain / Temp above 100 Stop: 01/25/18 21:04 Al Hydrox/Mg Hydrox/Simethicone (Maalox) 30 ml PO Q4HR PRN PRN Reason: GI DISTRESS Stop: 01/25/18 21:04 Al Hydrox/Mg Hydrox/Simethicone (Maalox) 30 ml PO Q6HR PRN PRN Reason: GI DISTRESS Stop: 01/26/18 12:44 Albuterol Sulfate (Albuterol 2.5mg/3ml Neb Ud) 2.5 mg HHN Q2HR PRN PRN Reason: Shortness of Breath or Wheeze Stop: 01/26/18 12:44 Docusate Sodium (Colace) 200 mg PO HS [facility] Stop: 01/26/18 20:59 Last Admin: 11/29/17 21:26 Dose: 200 mg Donepezil HCl (Aricept) 10 mg PO HS [facility] Stop: 01/25/18 20:59 Last Admin: 11/29/17 21:27 Dose: 10 mg Guaifenesin (Robitussin) 200 mg PO Q4HR PRN PRN Reason: Cough or Congestion Stop: 01/26/18 12:44 Ipratropium [place] (Atrovent Neb 0.5mg/2.5ml) 0.5 mg HHN Q2HR PRN PRN Reason: Shortness of Breath or Wheeze Stop: 01/26/18 12:44 Lorazepam (Ativan) 0.5 mg PO Q4HR PRN; Protocol PRN Reason: Anxiety Stop: 12/26/17 21:04 Magnesium Hydroxide (Milk Of Magnesia) 30 ml PO HS PRN PRN Reason: Constipation Memantine (Namenda) 5 mg PO DAILY [facility] Stop: 01/27/18 08:59 Last Admin: 11/30/17 09:37 Dose: 5 mg Quetiapine Fumarate (Seroquel) 25 mg PO BID [facility] PRN Reason: Protocol Stop: 01/26/18 08:59 Last Admin: 11/30/17 09:37 Dose: 25 mg Zolpidem Tartrate (Ambien) 5 mg PO HS PRN PRN Reason: Insomnia Stop: 01/25/18 21:04 Last Admin: 11/29/17 21:27 Dose: 5 mg General: lethargic, demented, appears older, NAD HEENT: NC/AT, PERRLA Neck: Supple, No JVD, deformity Cardiovascular: RRR, Normal S1, Normal S2, with murmur Abdomen: soft, thin, non-distended, positive bowel sound Extremities: excoriation, deformity Neurological: no change, lethargic, bedbound Internal Medicine Assmt/Plan - Assessment Assessment: psychosis gait instability generalized weakness dementia - Plan Plan: cont on fall precaution aspirtation precautionn dvt and gastritis prophylaxis barry wyatt
[2017-11-30] MEDS: Multivitamin w/ Minerals Tab PO SCH (21:10)
--- NOTE | 2017-11-30 23:24 | Progress Notes ---
DATE: 11/30/[address] Mills. This is an 82-year-old male who was admitted on the 11/26/2017. He is confused, paranoid, refusing medication and assaultive toward staff of the nursing facility with multiple medical problems, hyperlipidemia, hypertension, Alzheimer dementia. He was decompensating, paranoid, agitated, violent and assaultive to the staff, confused, unable to make safe plan for self-care. Continues to be irritable, continues to be unable to participate in meaningful conversation or make safe plan for self-care. He is on Aricept 10 mg at bedtime and Namenda 5 mg daily that was initiated on 11/28/2017 and Seroquel 25 mg twice a day with no side effects, no sedation, no nausea, no extrapyramidal symptoms and we will continue to work with the patient in group therapy, milieu therapy, and adjust medication as needed. JOB# [id number]
--- NOTE | 2017-12-01 12:10 | Internal Medicine Prog Note ---
Internal Medicine Subjective - Subjective Patient seen and examined:: with staff, chart reviewed Patient is:: awake, non-verbal, non-interactive, in bed, confused, stares blankly Per staff patient has:: no adverse event, no episodes of fall, poor appetite, noncompliant, tolerating meds Internal Medicine Objective - Physical Exam Vitals and I&O: Vital Signs Temp 98 F 12/01/17 06:29 Pulse 75 12/01/17 07:37 Resp 18 12/01/17 07:37 BP 115/54 12/01/17 06:29 Pulse Ox 95 12/01/17 07:37 Intake & Output 11/30/17 12/01/17 12/01/17 18:59 06:59 18:59 Intake Total 1200 120 Balance 1200 120 Intake: Oral 1200 120 Other: # Voids 3 3 # Bowel Movements 1 1 Active Medications: Current Medications Acetaminophen (Tylenol) 650 mg PO Q4HR PRN PRN Reason: Mild Pain / Temp above 100 Stop: 01/25/18 21:04 Al Hydrox/Mg Hydrox/Simethicone (Maalox) 30 ml PO Q4HR PRN PRN Reason: GI DISTRESS Stop: 01/25/18 21:04 Al Hydrox/Mg Hydrox/Simethicone (Maalox) 30 ml PO Q6HR PRN PRN Reason: GI DISTRESS Stop: 01/26/18 12:44 Albuterol Sulfate (Albuterol 2.5mg/3ml Neb Ud) 2.5 mg HHN Q2HR PRN PRN Reason: Shortness of Breath or Wheeze Stop: 01/26/18 12:44 Docusate Sodium (Colace) 200 mg PO HS [facility] Stop: 01/26/18 20:59 Last Admin: 11/30/17 21:11 Dose: Not Given Donepezil HCl (Aricept) 10 mg PO HS [facility] Stop: 01/25/18 20:59 Last Admin: 11/30/17 21:10 Dose: Not Given Guaifenesin (Robitussin) 200 mg PO Q4HR PRN PRN Reason: Cough or Congestion Stop: 01/26/18 12:44 Ipratropium [place] (Atrovent Neb 0.5mg/2.5ml) 0.5 mg HHN Q2HR PRN PRN Reason: Shortness of Breath or Wheeze Stop: 01/26/18 12:44 Lorazepam (Ativan) 0.5 mg PO Q4HR PRN; Protocol PRN Reason: Anxiety Stop: 12/26/17 21:04 Magnesium Hydroxide (Milk Of Magnesia) 30 ml PO HS PRN PRN Reason: Constipation Memantine (Namenda) 5 mg PO DAILY [facility] Stop: 01/27/18 08:59 Last Admin: 12/01/17 08:24 Dose: Not Given Quetiapine Fumarate (Seroquel) 25 mg PO BID [facility] PRN Reason: Protocol Stop: 01/26/18 08:59 Last Admin: 12/01/17 08:24 Dose: Not Given Zolpidem Tartrate (Ambien) 5 mg PO HS PRN PRN Reason: Insomnia Stop: 01/25/18 21:04 Last Admin: 11/29/17 21:27 Dose: 5 mg General: lethargic, demented, appears older, NAD HEENT: NC/AT, PERRLA Neck: Supple, No JVD, deformity Cardiovascular: RRR, Normal S1, Normal S2, with murmur Abdomen: soft, thin, non-distended, positive bowel sound Extremities: excoriation, deformity Neurological: no change, lethargic, bedbound Internal Medicine Assmt/Plan - Assessment Assessment: psychosis gait instability generalized weakness dementia malnutrition - Plan Plan: cont on fall precaution aspirtation precautionn dvt and gastritis prophylaxis barry rn
[2017-12-01] MEDS: Multivitamin w/ Minerals Tab PO SCH (21:04)
--- NOTE | 2017-12-01 21:45 | Progress Notes ---
DATE: 12/01/[address] Goodwin. Case was discussed with staff of the patient, reviewed records. The patient continues to be labile, yelling and screaming. Continues to be unpredictable, impulsive, needing redirection. He also refused to take his medication last night, but he has not refused it before according to the staff. He is still unpredictable, impulsive when I tried to talk to him and when answering of my questions. He is on Aricept 10 mg at bedtime. He is demented, confused. He is also on Namenda 5 mg that was initiated just [address] Mills and Seroquel 25 mg twice a day with no side effects, no sedation, no nausea, no extrapyramidal symptoms. It is hard to adjust medication when he is not taking it. So, if he continues to take it, I will be adjusting as he is still symptomatic and we will continue outpatient group therapy, milieu therapy, and adjust medications as needed. JOB# [id number]
--- NOTE | 2017-12-02 13:51 | Internal Medicine Prog Note ---
Internal Medicine Subjective - Subjective Service Date: 12/02/17 Patient is:: awake, non-verbal, non-interactive, in bed, confused, stares blankly Per staff patient has:: no adverse event, no episodes of fall, poor appetite, noncompliant, tolerating meds Internal Medicine Objective - Physical Exam Vitals and I&O: Vital Signs Temp 97 F 12/01/17 20:00 Pulse 71 12/01/17 20:00 Resp 19 12/01/17 20:00 BP 119/68 12/01/17 20:00 Pulse Ox 96 12/01/17 20:00 Intake & Output 12/01/17 12/02/17 12/02/17 18:59 06:59 18:59 Intake Total 900 240 Balance 900 240 Intake: Oral 900 240 Other: # Voids 2 3 Active Medications: Current Medications Acetaminophen (Tylenol) 650 mg PO Q4HR PRN PRN Reason: Mild Pain / Temp above 100 Stop: 01/25/18 21:04 Al Hydrox/Mg Hydrox/Simethicone (Maalox) 30 ml PO Q4HR PRN PRN Reason: GI DISTRESS Stop: 01/25/18 21:04 Al Hydrox/Mg Hydrox/Simethicone (Maalox) 30 ml PO Q6HR PRN PRN Reason: GI DISTRESS Stop: 01/26/18 12:44 Albuterol Sulfate (Albuterol 2.5mg/3ml Neb Ud) 2.5 mg HHN Q2HR PRN PRN Reason: Shortness of Breath or Wheeze Stop: 01/26/18 12:44 Docusate Sodium (Colace) 200 mg PO HS [facility] Stop: 01/26/18 20:59 Last Admin: 12/01/17 21:04 Dose: 200 mg Donepezil HCl (Aricept) 10 mg PO HS [facility] Stop: 01/25/18 20:59 Last Admin: 12/01/17 21:04 Dose: 10 mg Guaifenesin (Robitussin) 200 mg PO Q4HR PRN PRN Reason: Cough or Congestion Stop: 01/26/18 12:44 Ipratropium [place] (Atrovent Neb 0.5mg/2.5ml) 0.5 mg HHN Q2HR PRN PRN Reason: Shortness of Breath or Wheeze Stop: 01/26/18 12:44 Lorazepam (Ativan) 0.5 mg PO Q4HR PRN; Protocol PRN Reason: Anxiety Stop: 12/26/17 21:04 Magnesium Hydroxide (Milk Of Magnesia) 30 ml PO HS PRN PRN Reason: Constipation Memantine (Namenda) 5 mg PO DAILY [facility] Stop: 01/27/18 08:59 Last Admin: 12/02/17 09:04 Dose: 5 mg Quetiapine Fumarate (Seroquel) 25 mg PO BID [facility] PRN Reason: Protocol Stop: 01/26/18 08:59 Last Admin: 12/02/17 09:04 Dose: 25 mg Zolpidem Tartrate (Ambien) 5 mg PO HS PRN PRN Reason: Insomnia Stop: 01/25/18 21:04 Last Admin: 11/29/17 21:27 Dose: 5 mg General: lethargic, demented, appears older, NAD HEENT: NC/AT, PERRLA Neck: Supple, No JVD, deformity Cardiovascular: RRR, Normal S1, Normal S2, with murmur Abdomen: soft, thin, non-distended, positive bowel sound Extremities: excoriation, deformity Neurological: no change, lethargic, bedbound Internal Medicine Assmt/Plan - Assessment Assessment: psychosis gait instability generalized weakness dementia - Plan Plan: cont on fall precaution aspirtation precautionn dvt and gastritis prophylaxis barry rn Nutritional Asmnt/Malnutr-PDOC - Dietary Evaluation Malnutrition Findings (Please click <Entered> for more info): Nutritional Asmnt/Malnutrition Start: 11/30/17 10: 10 Text: Status: Complete Freq: Document 12/01/17 14:12 [facility] (Rec: 12/01/17 14:20 [facility] Nutritional Asmnt/Malnutrition Patient General Information Nutritional Screening Moderate Risk Diagnosis psychosis Pertinent Medical Hx/Surgical Hx dementia, gait instability Subjective Information Per nurse notes, pt refused medications sometimes. Per EMR , PO intake 50-100%, avg 75%. Nurse stated pt eats well. Current Diet Order/ Nutrition Support Pureed Pertinent Medications colace, seroquel Pertinent Labs no labs Nutritional Hx/Data Height 5 ft 10 in Height (Calculated Centimeters) 177.8 Current Weight (lbs) 132 lb Weight (Calculated Kilograms) 59.9 Weight (Calculated Grams) 47343.2 [place] Body Weight 172 Body Mass Index (BMI) 18.9 Weight Status Approriate GI Symptoms GI Symptoms None Last BM 12/01 Difficult in: None Skin Integrity/Comment: intact, redness Current %PO Good (75-100%) Estimated Nutritional Goals BEE in Kcals: Using Current wt Calories/Kcals/Kg 25-30 Kcals Calculated 0820-3767 Protein: Using Current wt Protein g/k-1.2 Protein Calculated 60-72 Fluid: ml 1500-1800ml (1ml/kcal) Nutritional Problem No current Nutrition Prob Problem n/A Intervention/Recommendation Comments 1. Continue with pureed diet as ordered. 2. Monitor PO intake, wt, and skin integrity 3. F/U as low risk in 7 days, 12/04-12/06 Expected Outcomes/Goals Expected Outcomes/Goals 1. PO intake to meet at least 75% of nutritional needs. 2. Wt stability, skin to remain intact
[2017-12-02] MEDS: Multivitamin w/ Minerals Tab PO SCH (20:28)
--- NOTE | 2017-12-03 00:59 | Progress Notes ---
DATE: 12/02/2017 SUBJECTIVE: Case was discussed with staff of the patient and reviewed records. The patient continues to be irritable, easily agitated, continues to have poor insight, continues to be aggressive and threatening at times. He is sleeping well and eating well. No side effects with the medication, no sedation, no nausea, no extrapyramidal symptoms. I will continue patient in group therapy, milieu therapy, and adjust medications as needed. [facility]# [id number]
--- NOTE | 2017-12-03 13:42 | Internal Medicine Prog Note ---
Internal Medicine Subjective - Subjective Service Date: 12/03/17 Patient is:: awake, non-verbal, non-interactive, in bed, confused, stares blankly Per staff patient has:: no adverse event, no episodes of fall, poor appetite, noncompliant, tolerating meds Internal Medicine Objective - Physical Exam Vitals and I&O: Vital Signs Temp 97.5 F 12/02/17 20:00 Pulse 66 12/03/17 07:01 Resp 18 12/03/17 07:01 BP 131/74 12/02/17 20:00 Pulse Ox 96 12/03/17 07:01 Intake & Output 12/02/17 12/03/17 12/03/17 18:59 06:59 18:59 Intake Total 1140 Balance 1140 Intake: Oral 1140 Other: # Voids 3 Stool Characteristics Soft Active Medications: Current Medications Acetaminophen (Tylenol) 650 mg PO Q4HR PRN PRN Reason: Mild Pain / Temp above 100 Stop: 01/25/18 21:04 Al Hydrox/Mg Hydrox/Simethicone (Maalox) 30 ml PO Q4HR PRN PRN Reason: GI DISTRESS Stop: 01/25/18 21:04 Al Hydrox/Mg Hydrox/Simethicone (Maalox) 30 ml PO Q6HR PRN PRN Reason: GI DISTRESS Stop: 01/26/18 12:44 Albuterol Sulfate (Albuterol 2.5mg/3ml Neb Ud) 2.5 mg HHN Q2HR PRN PRN Reason: Shortness of Breath or Wheeze Stop: 01/26/18 12:44 Docusate Sodium (Colace) 200 mg PO HS [facility] Stop: 01/26/18 20:59 Last Admin: 12/02/17 20:28 Dose: 200 mg Donepezil HCl (Aricept) 10 mg PO HS [facility] Stop: 01/25/18 20:59 Last Admin: 12/02/17 20:28 Dose: 10 mg Guaifenesin (Robitussin) 200 mg PO Q4HR PRN PRN Reason: Cough or Congestion Stop: 01/26/18 12:44 Ipratropium [place] (Atrovent Neb 0.5mg/2.5ml) 0.5 mg HHN Q2HR PRN PRN Reason: Shortness of Breath or Wheeze Stop: 01/26/18 12:44 Lorazepam (Ativan) 0.5 mg PO Q4HR PRN; Protocol PRN Reason: Anxiety Stop: 12/26/17 21:04 Magnesium Hydroxide (Milk Of Magnesia) 30 ml PO HS PRN PRN Reason: Constipation Memantine (Namenda) 5 mg PO DAILY [facility] Stop: 01/27/18 08:59 Last Admin: 12/03/17 08:33 Dose: 5 mg Quetiapine Fumarate (Seroquel) 25 mg PO BID [facility]IA PRN Reason: Protocol Stop: 01/26/18 08:59 Last Admin: 12/03/17 08:33 Dose: 25 mg Zolpidem Tartrate (Ambien) 5 mg PO HS PRN PRN Reason: Insomnia Stop: 01/25/18 21:04 Last Admin: 11/29/17 21:27 Dose: 5 mg General: lethargic, demented, appears older, NAD HEENT: NC/AT, PERRLA Neck: Supple, No JVD, deformity Cardiovascular: RRR, Normal S1, Normal S2, with murmur Abdomen: soft, thin, non-distended, positive bowel sound Extremities: excoriation, deformity Neurological: no change, lethargic, bedbound Internal Medicine Assmt/Plan - Assessment Assessment: psychosis gait instability generalized weakness dementia - Plan Plan: cont on fall precaution aspirtation precautionn dvt and gastritis prophylaxis dw rn Nutritional Asmnt/Malnutr-PDOC - Dietary Evaluation Malnutrition Findings (Please click <Entered> for more info): Nutritional Asmnt/Malnutrition Start: 11/30/17 10: 10 Text: Status: Complete Freq: Document 12/01/17 14:12 [facility] (Rec: 12/01/17 14:20 [facility] Nutritional Asmnt/Malnutrition Patient General Information Nutritional Screening Moderate Risk Diagnosis psychosis Pertinent Medical Hx/Surgical Hx dementia, gait instability Subjective Information Per nurse notes, pt refused medications sometimes. Per EMR , PO intake 50-100%, avg 75%. Nurse stated pt eats well. Current Diet Order/ Nutrition Support Pureed Pertinent Medications colace, seroquel Pertinent Labs no labs Nutritional Hx/Data Height 5 ft 10 in Height (Calculated Centimeters) 177.8 Current Weight (lbs) 132 lb Weight (Calculated Kilograms) 59.9 Weight (Calculated Grams) 62314.2 [place] Body Weight 172 Body Mass Index (BMI) 18.9 Weight Status Approriate GI Symptoms GI Symptoms None Last BM 12/01 Difficult in: None Skin Integrity/Comment: intact, redness Current %PO Good (75-100%) Estimated Nutritional Goals BEE in Kcals: Using Current wt Calories/Kcals/Kg 25-30 Kcals Calculated 3194-2721 Protein: Using Current wt Protein g/k-1.2 Protein Calculated 60-72 Fluid: ml 1500-1800ml (1ml/kcal) Nutritional Problem No current Nutrition Prob Problem n/A Intervention/Recommendation Comments 1. Continue with pureed diet as ordered. 2. Monitor PO intake, wt, and skin integrity 3. F/U as low risk in 7 days, 12/04-12/06 Expected Outcomes/Goals Expected Outcomes/Goals 1. PO intake to meet at least 75% of nutritional needs. 2. Wt stability, skin to remain intact
[2017-12-03] MEDS: Multivitamin w/ Minerals Tab PO SCH (20:44)
--- NOTE | 2017-12-03 21:41 | Progress Notes ---
DATE: 12/03/2017 The patient is currently in the hospital, still yelling, screaming, calling me "motherfucker," agitated, irritable, cursing, still threatening at times, aggressive. Dr. Tellez seeing the patient over the past few days, noting that he was aggressive, still threatening. Medications reviewed. No overt side effects. The patient remains isolative. ASSESSMENT: The patient remains symptomatic, aggressive, cursing, not safe for a lower level of care. PLAN: We will continue to monitor and titrate medications. Given his ongoing symptoms, he is not safe for discharge. The patient may benefit from dose titration of medications. [facility]# [id number]
--- NOTE | 2017-12-04 15:58 | Internal Medicine Prog Note ---
Internal Medicine Subjective - Subjective Service Date: 12/04/17 Patient is:: awake, non-verbal, non-interactive, in bed, confused, stares blankly Per staff patient has:: no adverse event, no episodes of fall, poor appetite, noncompliant, tolerating meds Internal Medicine Objective - Physical Exam Vitals and I&O: Vital Signs Temp 97.1 F 12/04/17 14:41 Pulse 80 12/04/17 14:41 Resp 18 12/04/17 14:41 BP 128/72 12/04/17 14:41 Pulse Ox 96 12/04/17 14:41 Intake & Output 12/03/17 12/04/17 12/04/17 18:59 06:59 18:59 Intake Total 1200 320 Balance 1200 320 Intake: Oral 1200 320 Other: # Voids 3 1 Stool Characteristics Soft Active Medications: Current Medications Acetaminophen (Tylenol) 650 mg PO Q4HR PRN PRN Reason: Mild Pain / Temp above 100 Stop: 01/25/18 21:04 Al Hydrox/Mg Hydrox/Simethicone (Maalox) 30 ml PO Q4HR PRN PRN Reason: GI DISTRESS Stop: 01/25/18 21:04 Al Hydrox/Mg Hydrox/Simethicone (Maalox) 30 ml PO Q6HR PRN PRN Reason: GI DISTRESS Stop: 01/26/18 12:44 Albuterol Sulfate (Albuterol 2.5mg/3ml Neb Ud) 2.5 mg HHN Q2HR PRN PRN Reason: Shortness of Breath or Wheeze Stop: 01/26/18 12:44 Docusate Sodium (Colace) 200 mg PO HS [facility] Stop: 01/26/18 20:59 Last Admin: 12/03/17 20:44 Dose: 200 mg Donepezil HCl (Aricept) 10 mg PO HS [facility] Stop: 01/25/18 20:59 Last Admin: 12/03/17 20:44 Dose: Not Given Guaifenesin (Robitussin) 200 mg PO Q4HR PRN PRN Reason: Cough or Congestion Stop: 01/26/18 12:44 Ipratropium [place] (Atrovent Neb 0.5mg/2.5ml) 0.5 mg HHN Q2HR PRN PRN Reason: Shortness of Breath or Wheeze Stop: 01/26/18 12:44 Lorazepam (Ativan) 0.5 mg PO Q4HR PRN; Protocol PRN Reason: Anxiety Stop: 12/26/17 21:04 Magnesium Hydroxide (Milk Of Magnesia) 30 ml PO HS PRN PRN Reason: Constipation Memantine (Namenda) 5 mg PO DAILY [facility] Stop: 01/27/18 08:59 Last Admin: 12/04/17 11:09 Dose: 5 mg Quetiapine Fumarate (Seroquel) 25 mg PO BID [facility]IA PRN Reason: Protocol Stop: 01/26/18 08:59 Last Admin: 12/04/17 11:09 Dose: 25 mg Zolpidem Tartrate (Ambien) 5 mg PO HS PRN PRN Reason: Insomnia Stop: 01/25/18 21:04 Last Admin: 11/29/17 21:27 Dose: 5 mg General: lethargic, demented, appears older, NAD HEENT: NC/AT, PERRLA Neck: Supple, No JVD, deformity Cardiovascular: RRR, Normal S1, Normal S2, with murmur Abdomen: soft, thin, non-distended, positive bowel sound Extremities: excoriation, deformity Neurological: no change, lethargic, bedbound Internal Medicine Assmt/Plan - Assessment Assessment: psychosis gait instability generalized weakness dementia - Plan Plan: cont on fall precaution aspirtation precautionn dvt and gastritis prophylaxis dw rn Nutritional Asmnt/Malnutr-PDOC - Dietary Evaluation Malnutrition Findings (Please click <Entered> for more info): Nutritional Asmnt/Malnutrition Start: 11/30/17 10: 10 Text: Status: Complete Freq: Document 12/01/17 14:12 [facility] (Rec: 12/01/17 14:[facility] Nutritional Asmnt/Malnutrition Patient General Information Nutritional Screening Moderate Risk Diagnosis psychosis Pertinent Medical Hx/Surgical Hx dementia, gait instability Subjective Information Per nurse notes, pt refused medications sometimes. Per EMR , PO intake 50-100%, avg 75%. Nurse stated pt eats well. Current Diet Order/ Nutrition Support Pureed Pertinent Medications colace, seroquel Pertinent Labs no labs Nutritional Hx/Data Height 5 ft 10 in Height (Calculated Centimeters) 177.8 Current Weight (lbs) 132 lb Weight (Calculated Kilograms) 59.9 Weight (Calculated Grams) 17977.2 [place] Body Weight 172 Body Mass Index (BMI) 18.9 Weight Status Approriate GI Symptoms GI Symptoms None Last BM 12/01 Difficult in: None Skin Integrity/Comment: intact, redness Current %PO Good (75-100%) Estimated Nutritional Goals BEE in Kcals: Using Current wt Calories/Kcals/Kg 25-30 Kcals Calculated 5826-4257 Protein: Using Current wt Protein g/k-1.2 Protein Calculated 60-72 Fluid: ml 1500-1800ml (1ml/kcal) Nutritional Problem No current Nutrition Prob Problem n/A Intervention/Recommendation Comments 1. Continue with pureed diet as ordered. 2. Monitor PO intake, wt, and skin integrity 3. F/U as low risk in 7 days, 12/04-12/06 Expected Outcomes/Goals Expected Outcomes/Goals 1. PO intake to meet at least 75% of nutritional needs. 2. Wt stability, skin to remain intact
--- NOTE | 2017-12-04 19:07 | Progress Notes ---
DATE: 12/04/2017 The patient in the hospital, still rude or agitated, cursing at times. He does seem to be somewhat calmer at this time, resting comfortably, still remains impulsive, somewhat unpredictable. He remains isolative. Medications were reviewed. ASSESSMENT: The patient is symptomatic, still cursing, irritable, still verbally lashing out but seems to be somewhat calmer today. PLAN: We will continue to monitor and titrate and adjust medications as needed. Given the patient's ongoing symptoms, he is not safe for discharge at this time. JOB# [id number]
[2017-12-04] MEDS: Multivitamin w/ Minerals Tab PO SCH (19:59)
--- NOTE | 2017-12-05 14:36 | Internal Medicine Prog Note ---
Internal Medicine Subjective - Subjective Service Date: 12/05/17 Patient is:: awake, non-verbal, non-interactive, in bed, confused, stares blankly Per staff patient has:: no adverse event, no episodes of fall, poor appetite, noncompliant, tolerating meds Internal Medicine Objective - Physical Exam Vitals and I&O: Vital Signs Temp 97 F 12/05/17 06:45 Pulse 73 12/05/17 06:45 Resp 14 12/05/17 06:45 BP 101/53 12/05/17 06:45 Pulse Ox 92 12/05/17 06:45 Intake & Output 12/04/17 12/05/17 12/05/17 18:59 06:59 18:59 Intake Total 720 360 Output Total 1 Balance 720 359 Intake: Oral 720 360 Output: Stool 1 Other: # Voids 4 1 # Bowel Movements 2 Active Medications: Current Medications Acetaminophen (Tylenol) 650 mg PO Q4HR PRN PRN Reason: Mild Pain / Temp above 100 Stop: 01/25/18 21:04 Al Hydrox/Mg Hydrox/Simethicone (Maalox) 30 ml PO Q4HR PRN PRN Reason: GI DISTRESS Stop: 01/25/18 21:04 Al Hydrox/Mg Hydrox/Simethicone (Maalox) 30 ml PO Q6HR PRN PRN Reason: GI DISTRESS Stop: 01/26/18 12:44 Albuterol Sulfate (Albuterol 2.5mg/3ml Neb Ud) 2.5 mg HHN Q2HR PRN PRN Reason: Shortness of Breath or Wheeze Stop: 01/26/18 12:44 Docusate Sodium (Colace) 200 mg PO HS [facility] Stop: 01/26/18 20:59 Last Admin: 12/04/17 20:00 Dose: 200 mg Donepezil HCl (Aricept) 10 mg PO HS [facility] Stop: 01/25/18 20:59 Last Admin: 12/04/17 20:00 Dose: 10 mg Guaifenesin (Robitussin) 200 mg PO Q4HR PRN PRN Reason: Cough or Congestion Stop: 01/26/18 12:44 Ipratropium [place] (Atrovent Neb 0.5mg/2.5ml) 0.5 mg HHN Q2HR PRN PRN Reason: Shortness of Breath or Wheeze Stop: 01/26/18 12:44 Lorazepam (Ativan) 0.5 mg PO Q4HR PRN; Protocol PRN Reason: Anxiety Stop: 12/26/17 21:04 Last Admin: 12/04/17 20:00 Dose: 0.5 mg Magnesium Hydroxide (Milk Of Magnesia) 30 ml PO HS PRN PRN Reason: Constipation Memantine (Namenda) 5 mg PO DAILY [facility] Stop: 01/27/18 08:59 Last Admin: 12/05/17 09:10 Dose: 5 mg Quetiapine Fumarate (Seroquel) 25 mg PO BID [facility] PRN Reason: Protocol Stop: 01/26/18 08:59 Last Admin: 12/05/17 09:10 Dose: 25 mg Zolpidem Tartrate (Ambien) 5 mg PO HS PRN PRN Reason: Insomnia Stop: 01/25/18 21:04 Last Admin: 11/29/17 21:27 Dose: 5 mg General: lethargic, demented, appears older, NAD HEENT: NC/AT, PERRLA Neck: Supple, No JVD, deformity Cardiovascular: RRR, Normal S1, Normal S2, with murmur Abdomen: soft, thin, non-distended, positive bowel sound Extremities: excoriation, deformity Neurological: no change, lethargic, bedbound Internal Medicine Assmt/Plan - Assessment Assessment: psychosis gait instability generalized weakness dementia - Plan Plan: cont on fall precaution aspirtation precautionn dvt and gastritis prophylaxis dw rn Nutritional Asmnt/Malnutr-PDOC - Dietary Evaluation Malnutrition Findings (Please click <Entered> for more info): Nutritional Asmnt/Malnutrition Start: 11/30/17 10: 10 Text: Status: Complete Freq: Document 12/01/17 14:12 [facility] (Rec: 12/01/17 14:20 [email or web address]) Nutritional Asmnt/Malnutrition Patient General Information Nutritional Screening Moderate Risk Diagnosis psychosis Pertinent Medical Hx/Surgical Hx dementia, gait instability Subjective Information Per nurse notes, pt refused medications sometimes. Per EMR , PO intake 50-100%, avg 75%. Nurse stated pt eats well. Current Diet Order/ Nutrition Support Pureed Pertinent Medications colace, seroquel Pertinent Labs no labs Nutritional Hx/Data Height 5 ft 10 in Height (Calculated Centimeters) 177.8 Current Weight (lbs) 132 lb Weight (Calculated Kilograms) 59.9 Weight (Calculated Grams) 65642.2 [place] Body Weight 172 Body Mass Index (BMI) 18.9 Weight Status Approriate GI Symptoms GI Symptoms None Last BM 12/01 Difficult in: None Skin Integrity/Comment: intact, redness Current %PO Good (75-100%) Estimated Nutritional Goals BEE in Kcals: Using Current wt Calories/Kcals/Kg 25-30 Kcals Calculated 9393-3450 Protein: Using Current wt Protein g/k-1.2 Protein Calculated 60-72 Fluid: ml 1500-1800ml (1ml/kcal) Nutritional Problem No current Nutrition Prob Problem n/A Intervention/Recommendation Comments 1. Continue with pureed diet as ordered. 2. Monitor PO intake, wt, and skin integrity 3. F/U as low risk in 7 days, 12/04-12/06 Expected Outcomes/Goals Expected Outcomes/Goals 1. PO intake to meet at least 75% of nutritional needs. 2. Wt stability, skin to remain intact
[2017-12-05] MEDS: Multivitamin w/ Minerals Tab PO SCH (20:53)
--- NOTE | 2017-12-06 07:40 | Progress Notes ---
DATE: SUBJECTIVE: The patient was seen and evaluated. The patient's chart reviewed. This is Dr. Goodwin. This is an 82-year-old male with history of multiple medical problems and dementia, who was brought in here after refusing medication and paranoid. Today on [id number] evaluation, the patient continues to be easily verbally aggressive. He was sleepy, easily awakened, but then becomes assaultive and verbally cursing, when attempting to redirect his conversations, he becomes more agitated and need for reinforcements, remains isolative, distraught. MENTAL STATUS EXAMINATION: He is still cursing, irritable, agitated, verbally lashing out and disengaged. CURRENT MEDICATIONS: Include Lexapro 10 mg a day, Namenda 5 mg a day and Seroquel 25 mg p.o. b.i.d. 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 We will continue with the current medication regimen until reaching steady state to target the patient's residual aggressive and verbally assaultive behavior. JOB# [id number]
--- NOTE | 2017-12-06 15:23 | Internal Medicine Prog Note ---
Internal Medicine Subjective - Subjective Service Date: 12/06/17 Patient is:: awake, non-verbal, non-interactive, in bed, confused, stares blankly Per staff patient has:: no adverse event, no episodes of fall, poor appetite, noncompliant, tolerating meds Internal Medicine Objective - Physical Exam Vitals and I&O: Vital Signs Temp 98.7 F 12/06/17 06:28 Pulse 68 12/06/17 07:32 Resp 14 12/06/17 07:32 BP 141/58 12/06/17 06:28 Pulse Ox 94 12/06/17 07:32 Intake & Output 12/05/17 12/06/17 12/06/17 18:59 06:59 18:59 Intake Total 800 480 Balance 800 480 Intake: Oral 800 480 Other: # Voids 4 1 # Bowel Movements 0 Active Medications: Current Medications Acetaminophen (Tylenol) 650 mg PO Q4HR PRN PRN Reason: Mild Pain / Temp above 100 Stop: 01/25/18 21:04 Al Hydrox/Mg Hydrox/Simethicone (Maalox) 30 ml PO Q4HR PRN PRN Reason: GI DISTRESS Stop: 01/25/18 21:04 Al Hydrox/Mg Hydrox/Simethicone (Maalox) 30 ml PO Q6HR PRN PRN Reason: GI DISTRESS Stop: 01/26/18 12:44 Albuterol Sulfate (Albuterol 2.5mg/3ml Neb Ud) 2.5 mg HHN Q2HR PRN PRN Reason: Shortness of Breath or Wheeze Stop: 01/26/18 12:44 Docusate Sodium (Colace) 200 mg PO HS [facility] Stop: 01/26/18 20:59 Last Admin: 12/05/17 20:53 Dose: 200 mg Donepezil HCl (Aricept) 10 mg PO HS [facility] Stop: 01/25/18 20:59 Last Admin: 12/05/17 20:54 Dose: 10 mg Guaifenesin (Robitussin) 200 mg PO Q4HR PRN PRN Reason: Cough or Congestion Stop: 01/26/18 12:44 Ipratropium [place] (Atrovent Neb 0.5mg/2.5ml) 0.5 mg HHN Q2HR PRN PRN Reason: Shortness of Breath or Wheeze Stop: 01/26/18 12:44 Lorazepam (Ativan) 0.5 mg PO Q4HR PRN; Protocol PRN Reason: Anxiety Stop: 12/26/17 21:04 Last Admin: 12/05/17 20:53 Dose: 0.5 mg Magnesium Hydroxide (Milk Of Magnesia) 30 ml PO HS PRN PRN Reason: Constipation Memantine (Namenda) 5 mg PO DAILY [facility] Stop: 01/27/18 08:59 Last Admin: 12/06/17 10:15 Dose: 5 mg Quetiapine Fumarate (Seroquel) 25 mg PO BID [facility] PRN Reason: Protocol Stop: 01/26/18 08:59 Last Admin: 12/06/17 10:15 Dose: 25 mg Zolpidem Tartrate (Ambien) 5 mg PO HS PRN PRN Reason: Insomnia Stop: 01/25/18 21:04 Last Admin: 12/05/17 20:53 Dose: 5 mg General: lethargic, demented, appears older, NAD HEENT: NC/AT, PERRLA Neck: Supple, No JVD, deformity Cardiovascular: RRR, Normal S1, Normal S2, with murmur Abdomen: soft, thin, non-distended, positive bowel sound Extremities: excoriation, deformity Neurological: no change, lethargic, bedbound Internal Medicine Assmt/Plan - Assessment Assessment: psychosis gait instability generalized weakness dementia - Plan Plan: cont on fall precaution aspirtation precautionn dvt and gastritis prophylaxis barry rn Nutritional Asmnt/Malnutr-PDOC - Dietary Evaluation Malnutrition Findings (Please click <Entered> for more info): Nutritional Asmnt/Malnutrition Start: 11/30/17 10: 10 Text: Status: Complete Freq: Document 12/01/17 14:12 [facility] (Rec: 12/01/17 14:20 [email or web address]) Nutritional Asmnt/Malnutrition Patient General Information Nutritional Screening Moderate Risk Diagnosis psychosis Pertinent Medical Hx/Surgical Hx dementia, gait instability Subjective Information Per nurse notes, pt refused medications sometimes. Per EMR , PO intake 50-100%, avg 75%. Nurse stated pt eats well. Current Diet Order/ Nutrition Support Pureed Pertinent Medications colace, seroquel Pertinent Labs no labs Nutritional Hx/Data Height 5 ft 10 in Height (Calculated Centimeters) 177.8 Current Weight (lbs) 132 lb Weight (Calculated Kilograms) 59.9 Weight (Calculated Grams) 58531.2 [place] Body Weight 172 Body Mass Index (BMI) 18.9 Weight Status Approriate GI Symptoms GI Symptoms None Last BM 12/01 Difficult in: None Skin Integrity/Comment: intact, redness Current %PO Good (75-100%) Estimated Nutritional Goals BEE in Kcals: Using Current wt Calories/Kcals/Kg 25-30 Kcals Calculated 4480-0984 Protein: Using Current wt Protein g/k-1.2 Protein Calculated 60-72 Fluid: ml 1500-1800ml (1ml/kcal) Nutritional Problem No current Nutrition Prob Problem n/A Intervention/Recommendation Comments 1. Continue with pureed diet as ordered. 2. Monitor PO intake, wt, and skin integrity 3. F/U as low risk in 7 days, 12/04-12/06 Expected Outcomes/Goals Expected Outcomes/Goals 1. PO intake to meet at least 75% of nutritional needs. 2. Wt stability, skin to remain intact
[2017-12-06] MEDS: Multivitamin w/ Minerals Tab PO SCH (21:35)
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
--- NOTE | 2017-12-07 13:11 | Internal Medicine Prog Note ---
Internal Medicine Subjective - Subjective Service Date: 12/07/17 Patient is:: awake, non-verbal, non-interactive, in bed, confused, stares blankly Per staff patient has:: no adverse event, no episodes of fall, poor appetite, noncompliant, tolerating meds Internal Medicine Objective - Physical Exam Vitals and I&O: Vital Signs Temp 97.5 F 12/07/17 06:46 Pulse 69 12/07/17 07:40 Resp 16 12/07/17 07:40 BP 143/77 12/07/17 06:46 Pulse Ox 94 12/07/17 07:40 Intake & Output 12/06/17 12/07/17 12/07/17 18:59 06:59 18:59 Intake Total 700 0 Balance 700 0 Intake: Oral 700 0 Other: # Voids 4 1 # Bowel Movements 1 Active Medications: Current Medications Acetaminophen (Tylenol) 650 mg PO Q4HR PRN PRN Reason: Mild Pain / Temp above 100 Stop: 01/25/18 21:04 Al Hydrox/Mg Hydrox/Simethicone (Maalox) 30 ml PO Q6HR PRN PRN Reason: GI DISTRESS Stop: 01/26/18 12:44 Albuterol Sulfate (Albuterol 2.5mg/3ml Neb Ud) 2.5 mg HHN Q2HR PRN PRN Reason: Shortness of Breath or Wheeze Stop: 01/26/18 12:44 Docusate Sodium (Colace) 200 mg PO [facility] Stop: 01/26/18 20:59 Last Admin: 12/06/17 21:34 Dose: 200 mg Donepezil HCl (Aricept) 10 mg PO [facility] Stop: 01/25/18 20:59 Last Admin: 12/06/17 21:35 Dose: 10 mg Guaifenesin (Robitussin) 200 mg PO Q4HR PRN PRN Reason: Cough or Congestion Stop: 01/26/18 12:44 Ipratropium [place] (Atrovent Neb 0.5mg/2.5ml) 0.5 mg HHN Q2HR PRN PRN Reason: Shortness of Breath or Wheeze Stop: 01/26/18 12:44 Lorazepam (Ativan) 0.5 mg PO Q4HR PRN; Protocol PRN Reason: Anxiety Stop: 12/26/17 21:04 Last Admin: 12/05/17 20:53 Dose: 0.5 mg Magnesium Hydroxide (Milk Of Magnesia) 30 ml PO HS PRN PRN Reason: Constipation Memantine (Namenda) 5 mg PO DAILY [facility] Stop: 01/27/18 08:59 Last Admin: 12/07/17 09:29 Dose: 5 mg Quetiapine Fumarate (Seroquel) 25 mg PO BID [facility] PRN Reason: Protocol Stop: 01/26/18 08:59 Last Admin: 12/07/17 09:29 Dose: 25 mg Zolpidem Tartrate (Ambien) 5 mg PO HS PRN PRN Reason: Insomnia Stop: 01/25/18 21:04 Last Admin: 12/05/17 20:53 Dose: 5 mg General: lethargic, demented, appears older, NAD HEENT: NC/AT, PERRLA Neck: Supple, No JVD, deformity Cardiovascular: RRR, Normal S1, Normal S2, with murmur Abdomen: soft, thin, non-distended, positive bowel sound Extremities: excoriation, deformity Neurological: no change, lethargic, bedbound Internal Medicine Assmt/Plan - Assessment Assessment: psychosis gait instability generalized weakness dementia - Plan Plan: cont on fall precaution aspirtation precautionn dvt and gastritis prophylaxis dw rn Nutritional Asmnt/Malnutr-PDOC - Dietary Evaluation Malnutrition Findings (Please click <Entered> for more info): Nutritional Asmnt/Malnutrition Start: 11/30/17 10: 10 Text: Status: Complete Freq: Document 12/01/17 14:12 [facility] (Rec: 12/01/17 14:20 [facility]) Nutritional Asmnt/Malnutrition Patient General Information Nutritional Screening Moderate Risk Diagnosis psychosis Pertinent Medical Hx/Surgical Hx dementia, gait instability Subjective Information Per nurse notes, pt refused medications sometimes. Per EMR , PO intake 50-100%, avg 75%. Nurse stated pt eats well. Current Diet Order/ Nutrition Support Pureed Pertinent Medications colace, seroquel Pertinent Labs no labs Nutritional Hx/Data Height 5 ft 10 in Height (Calculated Centimeters) 177.8 Current Weight (lbs) 132 lb Weight (Calculated Kilograms) 59.9 Weight (Calculated Grams) 19640.2 [place] Body Weight 172 Body Mass Index (BMI) 18.9 Weight Status Approriate GI Symptoms GI Symptoms None Last BM 12/01 Difficult in: None Skin Integrity/Comment: intact, redness Current %PO Good (75-100%) Estimated Nutritional Goals BEE in Kcals: Using Current wt Calories/Kcals/Kg 25-30 Kcals Calculated 9170-3300 Protein: Using Current wt Protein g/k-1.2 Protein Calculated 60-72 Fluid: ml 1500-1800ml (1ml/kcal) Nutritional Problem No current Nutrition Prob Problem n/A Intervention/Recommendation Comments 1. Continue with pureed diet as ordered. 2. Monitor PO intake, wt, and skin integrity 3. F/U as low risk in 7 days, 12/04-12/06 Expected Outcomes/Goals Expected Outcomes/Goals 1. PO intake to meet at least 75% of nutritional needs. 2. Wt stability, skin to remain intact
[2017-12-07] MEDS: Multivitamin w/ Minerals Tab PO SCH (20:20)
--- NOTE | 2017-12-08 00:25 | Progress Notes ---
DATE: 12/07/2017 SUBJECTIVE: The patient is currently in the hospital, noted to be calmer, more cooperative, still withdrawn, reclusive, isolating, sleeping but arousable, somewhat confused, disoriented, remain somewhat impulsive, but overall seems to be more stable, mood more stable, no agitation this morning. No agitation over the past 24 hours. ASSESSMENT: The patient seems to be improving, sleeping, but arousable. No agitation. No escalation of behaviors. PLAN: We will continue to monitor, continue to titrate and adjust medications. We will also try to get confirmation of placement. JOB# [id number]
--- NOTE | 2017-12-08 13:35 | Internal Medicine Prog Note ---
Internal Medicine Subjective - Subjective Service Date: 12/08/17 Patient is:: awake, non-verbal, non-interactive, in bed, confused, stares blankly Per staff patient has:: no adverse event, no episodes of fall, poor appetite, noncompliant, tolerating meds Internal Medicine Objective - Physical Exam Vitals and I&O: Vital Signs Temp 97.2 F 12/08/17 06:31 Pulse 72 12/08/17 11:35 Resp 18 12/08/17 11:35 BP 108/51 12/08/17 06:31 Pulse Ox 96 12/08/17 11:35 Intake & Output 12/07/17 12/08/17 12/08/17 18:59 06:59 18:59 Intake Total 850 120 Output Total 1 Balance 850 119 Intake: Oral 850 120 Output: Stool 1 Other: # Voids 4 3 # Bowel Movements 2 0 Active Medications: Current Medications Acetaminophen (Tylenol) 650 mg PO Q4HR PRN PRN Reason: Mild Pain / Temp above 100 Stop: 01/25/18 21:04 Al Hydrox/Mg Hydrox/Simethicone (Maalox) 30 ml PO Q6HR PRN PRN Reason: GI DISTRESS Stop: 01/26/18 12:44 Albuterol Sulfate (Albuterol 2.5mg/3ml Neb Ud) 2.5 mg HHN Q2HR PRN PRN Reason: Shortness of Breath or Wheeze Stop: 01/26/18 12:44 Docusate Sodium (Colace) 200 mg PO [facility] Stop: 01/26/18 20:59 Last Admin: 12/07/17 20:20 Dose: 200 mg Donepezil HCl (Aricept) 10 mg PO [facility] Stop: 01/25/18 20:59 Last Admin: 12/07/17 20:20 Dose: 10 mg Guaifenesin (Robitussin) 200 mg PO Q4HR PRN PRN Reason: Cough or Congestion Stop: 01/26/18 12:44 Ipratropium [place] (Atrovent Neb 0.5mg/2.5ml) 0.5 mg HHN Q2HR PRN PRN Reason: Shortness of Breath or Wheeze Stop: 01/26/18 12:44 Lorazepam (Ativan) 0.5 mg PO Q4HR PRN; Protocol PRN Reason: Anxiety Stop: 12/26/17 21:04 Last Admin: 12/05/17 20:53 Dose: 0.5 mg Magnesium Hydroxide (Milk Of Magnesia) 30 ml PO HS PRN PRN Reason: Constipation Memantine (Namenda) 5 mg PO DAILY [facility] Stop: 01/27/18 08:59 Last Admin: 12/08/17 08:41 Dose: 5 mg Quetiapine Fumarate (Seroquel) 25 mg PO BID [facility] PRN Reason: Protocol Stop: 01/26/18 08:59 Last Admin: 12/08/17 08:40 Dose: 25 mg Zolpidem Tartrate (Ambien) 5 mg PO HS PRN PRN Reason: Insomnia Stop: 01/25/18 21:04 Last Admin: 12/05/17 20:53 Dose: 5 mg General: lethargic, demented, appears older, NAD HEENT: NC/AT, PERRLA Neck: Supple, No JVD, deformity Cardiovascular: RRR, Normal S1, Normal S2, with murmur Abdomen: soft, thin, non-distended, positive bowel sound Extremities: excoriation, deformity Neurological: no change, lethargic, bedbound Internal Medicine Assmt/Plan - Assessment Assessment: psychosis gait instability generalized weakness dementia - Plan Plan: cont on fall precaution aspirtation precautionn dvt and gastritis prophylaxis dw rn Nutritional Asmnt/Malnutr-PDOC - Dietary Evaluation Malnutrition Findings (Please click <Entered> for more info): Nutritional Asmnt/Malnutrition Start: 11/30/17 10: 10 Text: Status: Complete Freq: Document 12/01/17 14:12 [facility] (Rec: 12/01/17 14:20 [email or web address]) Nutritional Asmnt/Malnutrition Patient General Information Nutritional Screening Moderate Risk Diagnosis psychosis Pertinent Medical Hx/Surgical Hx dementia, gait instability Subjective Information Per nurse notes, pt refused medications sometimes. Per EMR , PO intake 50-100%, avg 75%. Nurse stated pt eats well. Current Diet Order/ Nutrition Support Pureed Pertinent Medications colace, seroquel Pertinent Labs no labs Nutritional Hx/Data Height 5 ft 10 in Height (Calculated Centimeters) 177.8 Current Weight (lbs) 132 lb Weight (Calculated Kilograms) 59.9 Weight (Calculated Grams) 05632.2 [place] Body Weight 172 Body Mass Index (BMI) 18.9 Weight Status Approriate GI Symptoms GI Symptoms None Last BM 12/01 Difficult in: None Skin Integrity/Comment: intact, redness Current %PO Good (75-100%) Estimated Nutritional Goals BEE in Kcals: Using Current wt Calories/Kcals/Kg 25-30 Kcals Calculated 5893-3310 Protein: Using Current wt Protein g/k-1.2 Protein Calculated 60-72 Fluid: ml 1500-1800ml (1ml/kcal) Nutritional Problem No current Nutrition Prob Problem n/A Intervention/Recommendation Comments 1. Continue with pureed diet as ordered. 2. Monitor PO intake, wt, and skin integrity 3. F/U as low risk in 7 days, 12/04-12/06 Expected Outcomes/Goals Expected Outcomes/Goals 1. PO intake to meet at least 75% of nutritional needs. 2. Wt stability, skin to remain intact
--- NOTE | 2017-12-08 17:42 | Progress Notes ---
DATE: 12/08/2017 SUBJECTIVE: The patient in the hospital, noted to be calmer, somewhat more cooperative. He is refusing to speak with me today, staring blankly, stable this morning. No agitation. Seems to be pretty isolative. Also, he is quite reclusive, taking his medications. ASSESSMENT: The patient is calm, refusing to speak with me likely approaching his baseline. No escalation of behaviors. PLAN: We will continue to monitor and titrate and adjust medications. We will coordinate care with social work to make sure the patient has a safe discharge plan. JOB# [id number]
[2017-12-08] MEDS: Multivitamin w/ Minerals Tab PO SCH (20:32)
--- NOTE | 2017-12-09 10:30 | Internal Medicine Prog Note ---
Internal Medicine Subjective - Subjective Service Date: 12/09/17 Patient is:: awake, non-verbal, non-interactive, in bed, confused, stares blankly Per staff patient has:: no adverse event, no episodes of fall, poor appetite, noncompliant, tolerating meds Internal Medicine Objective - Physical Exam Vitals and I&O: Vital Signs Temp 97.7 F 12/09/17 06:21 Pulse 92 12/09/17 06:21 Resp 18 12/09/17 06:21 BP 113/56 12/09/17 06:21 Pulse Ox 94 12/09/17 06:21 Intake & Output 12/08/17 12/09/17 12/09/17 18:59 06:59 18:59 Intake Total 850 180 Balance 850 180 Intake: Oral 850 180 Other: # Voids 4 1 # Bowel Movements 1 0 Active Medications: Current Medications Acetaminophen (Tylenol) 650 mg PO Q4HR PRN PRN Reason: Mild Pain / Temp above 100 Stop: 01/25/18 21:04 Al Hydrox/Mg Hydrox/Simethicone (Maalox) 30 ml PO Q6HR PRN PRN Reason: GI DISTRESS Stop: 01/26/18 12:44 Albuterol Sulfate (Albuterol 2.5mg/3ml Neb Ud) 2.5 mg HHN Q2HR PRN PRN Reason: Shortness of Breath or Wheeze Stop: 01/26/18 12:44 Docusate Sodium (Colace) 200 mg PO [facility] Stop: 01/26/18 20:59 Last Admin: 12/08/17 20:33 Dose: 200 mg Donepezil HCl (Aricept) 10 mg PO [facility] Stop: 01/25/18 20:59 Last Admin: 12/08/17 20:33 Dose: 10 mg Guaifenesin (Robitussin) 200 mg PO Q4HR PRN PRN Reason: Cough or Congestion Stop: 01/26/18 12:44 Last Admin: 12/09/17 08:45 Dose: 200 mg Ipratropium [place] (Atrovent Neb 0.5mg/2.5ml) 0.5 mg HHN Q2HR PRN PRN Reason: Shortness of Breath or Wheeze Stop: 01/26/18 12:44 Lorazepam (Ativan) 0.5 mg PO Q4HR PRN; Protocol PRN Reason: Anxiety Stop: 12/26/17 21:04 Last Admin: 12/05/17 20:53 Dose: 0.5 mg Magnesium Hydroxide (Milk Of Magnesia) 30 ml PO HS PRN PRN Reason: Constipation Memantine (Namenda) 5 mg PO DAILY [facility] Stop: 01/27/18 08:59 Last Admin: 12/09/17 08:45 Dose: 5 mg Quetiapine Fumarate (Seroquel) 25 mg PO BID [facility] PRN Reason: Protocol Stop: 01/26/18 08:59 Last Admin: 12/09/17 08:45 Dose: 25 mg Zolpidem Tartrate (Ambien) 5 mg PO HS PRN PRN Reason: Insomnia Stop: 01/25/18 21:04 Last Admin: 12/08/17 20:33 Dose: 5 mg General: lethargic, demented, appears older, NAD HEENT: NC/AT, PERRLA Neck: Supple, No JVD, deformity Cardiovascular: RRR, Normal S1, Normal S2, with murmur Abdomen: soft, thin, non-distended, positive bowel sound Extremities: excoriation, deformity Neurological: no change, lethargic, bedbound Internal Medicine Assmt/Plan - Assessment Assessment: psychosis gait instability generalized weakness dementia - Plan Plan: cont on fall precaution aspirtation precautionn dvt and gastritis prophylaxis dw rn Nutritional Asmnt/Malnutr-PDOC - Dietary Evaluation Malnutrition Findings (Please click <Entered> for more info): Nutritional Asmnt/Malnutrition Start: 11/30/17 10: 10 Text: Status: Complete Freq: Document 12/01/17 14:12 [facility] (Rec: 12/01/17 14:20 [facility] Nutritional Asmnt/Malnutrition Patient General Information Nutritional Screening Moderate Risk Diagnosis psychosis Pertinent Medical Hx/Surgical Hx dementia, gait instability Subjective Information Per nurse notes, pt refused medications sometimes. Per EMR , PO intake 50-100%, avg 75%. Nurse stated pt eats well. Current Diet Order/ Nutrition Support Pureed Pertinent Medications colace, seroquel Pertinent Labs no labs Nutritional Hx/Data Height 5 ft 10 in Height (Calculated Centimeters) 177.8 Current Weight (lbs) 132 lb Weight (Calculated Kilograms) 59.9 Weight (Calculated Grams) 76152.2 [place] Body Weight 172 Body Mass Index (BMI) 18.9 Weight Status Approriate GI Symptoms GI Symptoms None Last BM 12/01 Difficult in: None Skin Integrity/Comment: intact, redness Current %PO Good (75-100%) Estimated Nutritional Goals BEE in Kcals: Using Current wt Calories/Kcals/Kg 25-30 Kcals Calculated 9488-3306 Protein: Using Current wt Protein g/k-1.2 Protein Calculated 60-72 Fluid: ml 1500-1800ml (1ml/kcal) Nutritional Problem No current Nutrition Prob Problem n/A Intervention/Recommendation Comments 1. Continue with pureed diet as ordered. 2. Monitor PO intake, wt, and skin integrity 3. F/U as low risk in 7 days, 12/04-12/06 Expected Outcomes/Goals Expected Outcomes/Goals 1. PO intake to meet at least 75% of nutritional needs. 2. Wt stability, skin to remain intact
--- NOTE | 2017-12-09 18:19 | Progress Notes ---
DATE: 12/09/2017 The patient seen, chart reviewed, discussed with staff. The patient noted to be calm today 12/09/2017, but staff noting he remains somewhat aggressive at times, remains unruly at times, highly impulsive, unpredictable, sometimes lashing out. He is pretty confused, disoriented, not answering any questions at this time. He is currently isolative, mostly in bed. Medications were noted. Staff noting better p.o. intake. ASSESSMENT: The patient with better p.o. intake, still unruly at times, gets agitated at times, not safe for a lower level of care. PLAN: We will continue to monitor, titrate and adjust medications. We will coordinate care with social work regarding safe discharge plan and good psychiatric followup. JOB# [id number]
[2017-12-09] MEDS: Multivitamin w/ Minerals Tab PO SCH (21:07)
--- NOTE | 2017-12-10 16:25 | Internal Medicine Prog Note ---
Internal Medicine Subjective - Subjective Service Date: 12/10/17 Patient is:: awake, non-verbal, non-interactive, in bed, confused, stares blankly Per staff patient has:: no adverse event, no episodes of fall, poor appetite, noncompliant, tolerating meds Internal Medicine Objective - Physical Exam Vitals and I&O: Vital Signs Temp 97.6 F 12/10/17 16:03 Pulse 70 12/10/17 16:03 Resp 18 12/10/17 16:03 BP 124/69 12/10/17 16:03 Pulse Ox 96 12/10/17 16:03 Intake & Output 12/09/17 12/10/17 12/10/17 18:59 06:59 18:59 Intake Total 800 120 Balance 800 120 Intake: Oral 800 120 Other: # Voids 3 3 # Bowel Movements 2 Active Medications: Current Medications Acetaminophen (Tylenol) 650 mg PO Q4HR PRN PRN Reason: Mild Pain / Temp above 100 Stop: 01/25/18 21:04 Al Hydrox/Mg Hydrox/Simethicone (Maalox) 30 ml PO Q6HR PRN PRN Reason: GI DISTRESS Stop: 01/26/18 12:44 Albuterol Sulfate (Albuterol 2.5mg/3ml Neb Ud) 2.5 mg HHN Q2HR PRN PRN Reason: Shortness of Breath or Wheeze Stop: 01/26/18 12:44 Docusate Sodium (Colace) 200 mg PO HS [facility] Stop: 01/26/18 20:59 Last Admin: 12/09/17 21:06 Dose: 200 mg Donepezil HCl (Aricept) 10 mg PO HS [facility] Stop: 01/25/18 20:59 Last Admin: 12/09/17 21:06 Dose: 10 mg Guaifenesin (Robitussin) 200 mg PO Q4HR PRN PRN Reason: Cough or Congestion Stop: 01/26/18 12:44 Last Admin: 12/09/17 08:45 Dose: 200 mg Ipratropium [place] (Atrovent Neb 0.5mg/2.5ml) 0.5 mg HHN Q2HR PRN PRN Reason: Shortness of Breath or Wheeze Stop: 01/26/18 12:44 Lorazepam (Ativan) 0.5 mg PO Q4HR PRN; Protocol PRN Reason: Anxiety Stop: 12/26/17 21:04 Last Admin: 12/05/17 20:53 Dose: 0.5 mg Magnesium Hydroxide (Milk Of Magnesia) 30 ml PO HS PRN PRN Reason: Constipation Memantine (Namenda) 5 mg PO DAILY [facility] Stop: 01/27/18 08:59 Last Admin: 12/10/17 09:41 Dose: 5 mg Quetiapine Fumarate (Seroquel) 25 mg PO DAILY [facility] PRN Reason: Protocol Stop: 02/08/18 08:59 Last Admin: 12/10/17 09:41 Dose: 25 mg Quetiapine Fumarate (Seroquel) 50 mg PO HS [facility] PRN Reason: Protocol Stop: 02/08/18 10:48 Zolpidem Tartrate (Ambien) 5 mg PO HS PRN PRN Reason: Insomnia Stop: 01/25/18 21:04 Last Admin: 12/09/17 21:08 Dose: 5 mg General: lethargic, demented, appears older, NAD HEENT: NC/AT, PERRLA Neck: Supple, No JVD, deformity Cardiovascular: RRR, Normal S1, Normal S2, with murmur Abdomen: soft, thin, non-distended, positive bowel sound Extremities: excoriation, deformity Neurological: no change, lethargic, bedbound Internal Medicine Assmt/Plan - Assessment Assessment: psychosis gait instability generalized weakness dementia - Plan Plan: cont on fall precaution aspirtation precautionn dvt and gastritis prophylaxis dw rn Nutritional Asmnt/Malnutr-PDOC - Dietary Evaluation Malnutrition Findings (Please click <Entered> for more info): Nutritional Asmnt/Malnutrition Start: 11/30/17 10: 10 Text: Status: Complete Freq: Document 12/01/17 14:12 [facility] (Rec: 12/01/17 14:20 [facility] [email or web address]) Nutritional Asmnt/Malnutrition Patient General Information Nutritional Screening Moderate Risk Diagnosis psychosis Pertinent Medical Hx/Surgical Hx dementia, gait instability Subjective Information Per nurse notes, pt refused medications sometimes. Per EMR , PO intake 50-100%, avg 75%. Nurse stated pt eats well. Current Diet Order/ Nutrition Support Pureed Pertinent Medications colace, seroquel Pertinent Labs no labs Nutritional Hx/Data Height 5 ft 10 in Height (Calculated Centimeters) 177.8 Current Weight (lbs) 132 lb Weight (Calculated Kilograms) 59.9 Weight (Calculated Grams) 59210.2 [place] Body Weight 172 Body Mass Index (BMI) 18.9 Weight Status Approriate GI Symptoms GI Symptoms None Last BM 12/01 Difficult in: None Skin Integrity/Comment: intact, redness Current %PO Good (75-100%) Estimated Nutritional Goals BEE in Kcals: Using Current wt Calories/Kcals/Kg 25-30 Kcals Calculated 1614-8525 Protein: Using Current wt Protein g/k-1.2 Protein Calculated 60-72 Fluid: ml 1500-1800ml (1ml/kcal) Nutritional Problem No current Nutrition Prob Problem n/A Intervention/Recommendation Comments 1. Continue with pureed diet as ordered. 2. Monitor PO intake, wt, and skin integrity 3. F/U as low risk in 7 days, 12/04-12/06 Expected Outcomes/Goals Expected Outcomes/Goals 1. PO intake to meet at least 75% of nutritional needs. 2. Wt stability, skin to remain intact
[2017-12-10] MEDS: Multivitamin w/ Minerals Tab PO SCH (21:14)
--- NOTE | 2017-12-10 21:16 | Progress Notes ---
DATE: 12/10/2017 The patient seen, chart reviewed, discussed with staff. The patient remains unruly, seen today 12/10/2017, highly combative, yelling, cursing, cursing at me "get the fuck out of here," "I am no fucking good." The patient not answering any questions, mostly reclusive, isolating, angry, lashing out at staff. ASSESSMENT: The patient unruly, yelling, cursing, cursing at me, verbally accosting me, verbally aggressive, threatening, loud. PLAN: We will continue to monitor. Given his ongoing symptoms, he is not safe for discharge. Medications were noted. I will be increasing his nighttime Seroquel dosing again. JOB# [id number]
--- NOTE | 2017-12-11 13:57 | Internal Medicine Prog Note ---
Internal Medicine Subjective - Subjective Service Date: 12/11/17 Patient is:: awake, non-verbal, non-interactive, in bed, confused, stares blankly Per staff patient has:: no adverse event, no episodes of fall, poor appetite, noncompliant, tolerating meds Internal Medicine Objective - Physical Exam Vitals and I&O: Vital Signs Temp 97 F 12/11/17 06:43 Pulse 62 12/11/17 08:50 Resp 20 12/11/17 08:50 BP 115/63 12/11/17 06:43 Pulse Ox 95 12/11/17 08:50 Intake & Output 12/10/17 12/11/17 12/11/17 18:59 06:59 18:59 Intake Total 500 240 Balance 500 240 Intake: Oral 500 240 Other: # Voids 2 2 Active Medications: Current Medications Acetaminophen (Tylenol) 650 mg PO Q4HR PRN PRN Reason: Mild Pain / Temp above 100 Stop: 01/25/18 21:04 Al Hydrox/Mg Hydrox/Simethicone (Maalox) 30 ml PO Q6HR PRN PRN Reason: GI DISTRESS Stop: 01/26/18 12:44 Albuterol Sulfate (Albuterol 2.5mg/3ml Neb Ud) 2.5 mg HHN Q2HR PRN PRN Reason: Shortness of Breath or Wheeze Stop: 01/26/18 12:44 Docusate Sodium (Colace) 200 mg PO [facility] Stop: 01/26/18 20:59 Last Admin: 12/10/17 21:14 Dose: 200 mg Donepezil HCl (Aricept) 10 mg PO [facility] Stop: 01/25/18 20:59 Last Admin: 12/10/17 21:14 Dose: 10 mg Guaifenesin (Robitussin) 200 mg PO Q4HR PRN PRN Reason: Cough or Congestion Stop: 01/26/18 12:44 Last Admin: 12/09/17 08:45 Dose: 200 mg Ipratropium [place] (Atrovent Neb 0.5mg/2.5ml) 0.5 mg HHN Q2HR PRN PRN Reason: Shortness of Breath or Wheeze Stop: 01/26/18 12:44 Lorazepam (Ativan) 0.5 mg PO Q4HR PRN; Protocol PRN Reason: Anxiety Stop: 12/26/17 21:04 Last Admin: 12/05/17 20:53 Dose: 0.5 mg Magnesium Hydroxide (Milk Of Magnesia) 30 ml PO HS PRN PRN Reason: Constipation Memantine (Namenda) 5 mg PO DAILY [facility] Stop: 01/27/18 08:59 Last Admin: 12/11/17 10:00 Dose: 5 mg Quetiapine Fumarate (Seroquel) 25 mg PO DAILY [facility] PRN Reason: Protocol Stop: 02/08/18 08:59 Last Admin: 12/11/17 10:00 Dose: 25 mg Quetiapine Fumarate (Seroquel) 50 mg PO HS [facility] PRN Reason: Protocol Stop: 02/08/18 10:48 Last Admin: 12/10/17 21:15 Dose: 50 mg Zolpidem Tartrate (Ambien) 5 mg PO HS PRN PRN Reason: Insomnia Stop: 01/25/18 21:04 Last Admin: 12/09/17 21:08 Dose: 5 mg General: lethargic, demented, appears older, NAD HEENT: NC/AT, PERRLA Neck: Supple, No JVD, deformity Cardiovascular: RRR, Normal S1, Normal S2, with murmur Abdomen: soft, thin, non-distended, positive bowel sound Extremities: excoriation, deformity Neurological: no change, lethargic, bedbound Internal Medicine Assmt/Plan - Assessment Assessment: psychosis gait instability generalized weakness dementia - Plan Plan: cont on fall precaution aspirtation precautionn dvt and gastritis prophylaxis dw rn Nutritional Asmnt/Malnutr-PDOC - Dietary Evaluation Malnutrition Findings (Please click <Entered> for more info): Nutritional Asmnt/Malnutrition Start: 11/30/17 10: 10 Text: Status: Complete Freq: Document 12/01/17 14:12 [facility] (Rec: 12/01/17 14:20 [email or web address]) Nutritional Asmnt/Malnutrition Patient General Information Nutritional Screening Moderate Risk Diagnosis psychosis Pertinent Medical Hx/Surgical Hx dementia, gait instability Subjective Information Per nurse notes, pt refused medications sometimes. Per EMR , PO intake 50-100%, avg 75%. Nurse stated pt eats well. Current Diet Order/ Nutrition Support Pureed Pertinent Medications colace, seroquel Pertinent Labs no labs Nutritional Hx/Data Height 5 ft 10 in Height (Calculated Centimeters) 177.8 Current Weight (lbs) 132 lb Weight (Calculated Kilograms) 59.9 Weight (Calculated Grams) 67723.2 [place] Body Weight 172 Body Mass Index (BMI) 18.9 Weight Status Approriate GI Symptoms GI Symptoms None Last BM 12/01 Difficult in: None Skin Integrity/Comment: intact, redness Current %PO Good (75-100%) Estimated Nutritional Goals BEE in Kcals: Using Current wt Calories/Kcals/Kg 25-30 Kcals Calculated 8379-1781 Protein: Using Current wt Protein g/k-1.2 Protein Calculated 60-72 Fluid: ml 1500-1800ml (1ml/kcal) Nutritional Problem No current Nutrition Prob Problem n/A Intervention/Recommendation Comments 1. Continue with pureed diet as ordered. 2. Monitor PO intake, wt, and skin integrity 3. F/U as low risk in 7 days, 12/04-12/06 Expected Outcomes/Goals Expected Outcomes/Goals 1. PO intake to meet at least 75% of nutritional needs. 2. Wt stability, skin to remain intact
--- NOTE | 2017-12-11 17:53 | Progress Notes ---
DATE: 12/11/2017 The patient remains unruly, still yelling and cursing at times, sleeping, but arousable, highly confused, impoverished thought processes, still gets agitated, curses, yells, verbally accosting staff. Medications were reviewed including doses and frequencies. Recent dose adjustments were made. ASSESSMENT: The patient is unruly, yelling, verbally aggressive, not safe for a lower level of care due to ongoing behaviors. PLAN: We will continue to monitor given his ongoing symptoms overt safety concerns. The patient is tolerant of an increased dose of Seroquel. JOB# [id number]
[2017-12-11] MEDS: Multivitamin w/ Minerals Tab PO SCH (21:33)
--- NOTE | 2017-12-12 14:45 | Internal Medicine Prog Note ---
Internal Medicine Subjective - Subjective Patient seen and examined:: with staff, chart reviewed Patient is:: awake, non-verbal, non-interactive, in bed, confused, stares blankly Per staff patient has:: no adverse event, no episodes of fall, poor appetite, noncompliant, tolerating meds Internal Medicine Objective - Physical Exam Vitals and I&O: Vital Signs Temp 97.7 F 12/12/17 06:43 Pulse 62 12/12/17 11:25 Resp 16 12/12/17 11:25 BP 144/57 12/12/17 06:43 Pulse Ox 95 12/12/17 11:25 Intake & Output 12/11/17 12/12/17 12/12/17 18:59 06:59 18:59 Intake Total 300 Balance 300 Intake: Oral 300 Other: # Voids 2 Active Medications: Current Medications Acetaminophen (Tylenol) 650 mg PO Q4HR PRN PRN Reason: Mild Pain / Temp above 100 Stop: 01/25/18 21:04 Al Hydrox/Mg Hydrox/Simethicone (Maalox) 30 ml PO Q6HR PRN PRN Reason: GI DISTRESS Stop: 01/26/18 12:44 Albuterol Sulfate (Albuterol 2.5mg/3ml Neb Ud) 2.5 mg HHN Q2HR PRN PRN Reason: Shortness of Breath or Wheeze Stop: 01/26/18 12:44 Docusate Sodium (Colace) 200 mg PO HS [facility] Stop: 01/26/18 20:59 Last Admin: 12/11/17 21:32 Dose: 200 mg Donepezil HCl (Aricept) 10 mg PO HS [facility] Stop: 01/25/18 20:59 Last Admin: 12/11/17 21:33 Dose: 10 mg Guaifenesin (Robitussin) 200 mg PO Q4HR PRN PRN Reason: Cough or Congestion Stop: 01/26/18 12:44 Last Admin: 12/09/17 08:45 Dose: 200 mg Ipratropium [place] (Atrovent Neb 0.5mg/2.5ml) 0.5 mg HHN Q2HR PRN PRN Reason: Shortness of Breath or Wheeze Stop: 01/26/18 12:44 Lorazepam (Ativan) 0.5 mg PO Q4HR PRN; Protocol PRN Reason: Anxiety Stop: 12/26/17 21:04 Last Admin: 12/05/17 20:53 Dose: 0.5 mg Magnesium Hydroxide (Milk Of Magnesia) 30 ml PO HS PRN PRN Reason: Constipation Memantine (Namenda) 5 mg PO DAILY [facility] Stop: 01/27/18 08:59 Last Admin: 12/12/17 09:12 Dose: 5 mg Quetiapine Fumarate (Seroquel) 25 mg PO DAILY [facility] PRN Reason: Protocol Stop: 02/08/18 08:59 Last Admin: 12/12/17 09:12 Dose: 25 mg Quetiapine Fumarate (Seroquel) 50 mg PO HS [facility] PRN Reason: Protocol Stop: 02/08/18 10:48 Last Admin: 12/11/17 21:33 Dose: 50 mg Zolpidem Tartrate (Ambien) 5 mg PO HS PRN PRN Reason: Insomnia Stop: 01/25/18 21:04 Last Admin: 12/09/17 21:08 Dose: 5 mg General: lethargic, demented, appears older, NAD HEENT: NC/AT, PERRLA Neck: Supple, No JVD, deformity Cardiovascular: RRR, Normal S1, Normal S2, with murmur Abdomen: soft, thin, non-distended, positive bowel sound Extremities: excoriation, deformity Neurological: no change, lethargic, bedbound Internal Medicine Assmt/Plan - Assessment Assessment: psychosis gait instability generalized weakness dementia malnutrition - Plan Plan: cont on fall precaution aspirtation precautionn dvt and gastritis prophylaxis dw rn Nutritional Asmnt/Malnutr-PDOC - Dietary Evaluation Malnutrition Findings (Please click <Entered> for more info): Nutritional Asmnt/Malnutrition Start: 11/30/17 10: 10 Text: Status: Complete Freq: Document 12/01/17 14:12 [facility] (Rec: 12/01/17 14:20 [email or web address]) Nutritional Asmnt/Malnutrition Patient General Information Nutritional Screening Moderate Risk Diagnosis psychosis Pertinent Medical Hx/Surgical Hx dementia, gait instability Subjective Information Per nurse notes, pt refused medications sometimes. Per EMR , PO intake 50-100%, avg 75%. Nurse stated pt eats well. Current Diet Order/ Nutrition Support Pureed Pertinent Medications colace, seroquel Pertinent Labs no labs Nutritional Hx/Data Height 1.78 m Height (Calculated Centimeters) 177.8 Current Weight (lbs) 59.874 kg Weight (Calculated Kilograms) 59.9 Weight (Calculated Grams) 52509.2 [place] Body Weight 172 Body Mass Index (BMI) 18.9 Weight Status Approriate GI Symptoms GI Symptoms None Last BM 12/01 Difficult in: None Skin Integrity/Comment: intact, redness Current %PO Good (75-100%) Estimated Nutritional Goals BEE in Kcals: Using Current wt Calories/Kcals/Kg 25-30 Kcals Calculated 3745-9839 Protein: Using Current wt Protein g/k-1.2 Protein Calculated 60-72 Fluid: ml 1500-1800ml (1ml/kcal) Nutritional Problem No current Nutrition Prob Problem n/A Intervention/Recommendation Comments 1. Continue with pureed diet as ordered. 2. Monitor PO intake, wt, and skin integrity 3. F/U as low risk in 7 days, 12/04-12/06 Expected Outcomes/Goals Expected Outcomes/Goals 1. PO intake to meet at least 75% of nutritional needs. 2. Wt stability, skin to remain intact
[2017-12-12] MEDS: Multivitamin w/ Minerals Tab PO SCH (21:36)
--- NOTE | 2017-12-12 23:01 | Progress Notes ---
DATE: 12/12/2017 SUBJECTIVE: The patient remains unruly, still yelling, cursing at times, highly isolative, reclusive, despairing, mumbling to self, nonsensical, still verbally accostive to staff. Medication were reviewed including doses and frequencies. The patient eating with some prompting. Sleeping fairly well. ASSESSMENT: The patient is unruly, yelling, still aggressive, cursing, ongoing disruptive behaviors. PLAN: We will continue to monitor. The patient remains symptomatic, still cannot be cared for at a lower level of care. Given recent dose adjustments of medication, we will continue to monitor at current dose. JOB# [id number]
--- NOTE | 2017-12-13 17:01 | Progress Notes ---
DATE: 12/13/2017 SUBJECTIVE: The patient in the hospital due to yelling episodes, screaming episodes, still angry, unpredictable. He seems somewhat calmer today versus the past couple of days, he is not cursing at me, but he remains highly unpredictable. Sleeping fairly well, eating with some prompting. Unable to verbalize a plan for self-care, to impoverished, confused. ASSESSMENT: The patient unruly aggressive, cursing, ongoing disruptive behaviors. Still remains isolative. PLAN: We will continue to monitor. Encourage increased socialization. Medications reviewed. He is currently on Seroquel. Recent dose adjustments have been made. JOB# [id number]
--- NOTE | 2017-12-13 21:25 | Internal Medicine Prog Note ---
Internal Medicine Subjective - Subjective Patient seen and examined:: with staff, chart reviewed Patient is:: awake, non-verbal, non-interactive, in bed, confused, stares blankly Per staff patient has:: no adverse event, no episodes of fall, poor appetite, noncompliant, tolerating meds Internal Medicine Objective - Physical Exam Vitals and I&O: Vital Signs Temp 97.6 F 12/13/17 20:56 Pulse 77 12/13/17 20:56 Resp 20 12/13/17 20:56 BP 159/82 12/13/17 20:56 Pulse Ox 97 12/13/17 20:56 Intake & Output 12/13/17 12/13/17 12/14/17 06:59 18:59 06:59 Intake Total 0 900 240 Balance 0 900 240 Intake: Oral 0 900 240 Other: # Voids 1 4 1 # Bowel Movements 1 Active Medications: Current Medications Acetaminophen (Tylenol) 650 mg PO Q4HR PRN PRN Reason: Mild Pain / Temp above 100 Stop: 01/25/18 21:04 Al Hydrox/Mg Hydrox/Simethicone (Maalox) 30 ml PO Q6HR PRN PRN Reason: GI DISTRESS Stop: 01/26/18 12:44 Albuterol Sulfate (Albuterol 2.5mg/3ml Neb Ud) 2.5 mg HHN Q2HR PRN PRN Reason: Shortness of Breath or Wheeze Stop: 01/26/18 12:44 Docusate Sodium (Colace) 200 mg PO HS [facility] Stop: 01/26/18 20:59 Last Admin: 12/12/17 21:36 Dose: 200 mg Donepezil HCl (Aricept) 10 mg PO HS [facility] Stop: 01/25/18 20:59 Last Admin: 12/12/17 21:37 Dose: 10 mg Guaifenesin (Robitussin) 200 mg PO Q4HR PRN PRN Reason: Cough or Congestion Stop: 01/26/18 12:44 Last Admin: 12/09/17 08:45 Dose: 200 mg Ipratropium [place] (Atrovent Neb 0.5mg/2.5ml) 0.5 mg HHN Q2HR PRN PRN Reason: Shortness of Breath or Wheeze Stop: 01/26/18 12:44 Lorazepam (Ativan) 0.5 mg PO Q4HR PRN; Protocol PRN Reason: Anxiety Stop: 12/26/17 21:04 Last Admin: 12/05/17 20:53 Dose: 0.5 mg Magnesium Hydroxide (Milk Of Magnesia) 30 ml PO HS PRN PRN Reason: Constipation Memantine (Namenda) 5 mg PO DAILY [facility] Stop: 01/27/18 08:59 Last Admin: 12/13/17 08:42 Dose: 5 mg Quetiapine Fumarate (Seroquel) 25 mg PO DAILY [facility] PRN Reason: Protocol Stop: 02/08/18 08:59 Last Admin: 12/13/17 08:43 Dose: 25 mg Quetiapine Fumarate (Seroquel) 50 mg PO HS [facility] PRN Reason: Protocol Stop: 02/08/18 10:48 Last Admin: 12/12/17 21:36 Dose: 50 mg Zolpidem Tartrate (Ambien) 5 mg PO HS PRN PRN Reason: Insomnia Stop: 01/25/18 21:04 Last Admin: 12/09/17 21:08 Dose: 5 mg General: lethargic, demented, appears older, NAD HEENT: NC/AT, PERRLA Neck: Supple, No JVD, deformity Cardiovascular: RRR, Normal S1, Normal S2, with murmur Abdomen: soft, thin, non-distended, positive bowel sound Extremities: excoriation, deformity Neurological: no change, lethargic, bedbound Internal Medicine Assmt/Plan - Assessment Assessment: psychosis gait instability generalized weakness dementia malnutrition - Plan Plan: cont on fall precaution aspirtation precautionn dvt and gastritis prophylaxis barry rn Nutritional Asmnt/Malnutr-PDOC - Dietary Evaluation Malnutrition Findings (Please click <Entered> for more info): Nutritional Asmnt/Malnutrition Start: 11/30/17 10: 10 Text: Status: Complete Freq: Document 12/01/17 14:12 [facility] (Rec: 12/01/17 14:20 [email or web address]) Nutritional Asmnt/Malnutrition Patient General Information Nutritional Screening Moderate Risk Diagnosis psychosis Pertinent Medical Hx/Surgical Hx dementia, gait instability Subjective Information Per nurse notes, pt refused medications sometimes. Per EMR , PO intake 50-100%, avg 75%. Nurse stated pt eats well. Current Diet Order/ Nutrition Support Pureed Pertinent Medications colace, seroquel Pertinent Labs no labs Nutritional Hx/Data Height 1.78 m Height (Calculated Centimeters) 177.8 Current Weight (lbs) 59.874 kg Weight (Calculated Kilograms) 59.9 Weight (Calculated Grams) 24820.2 [place] Body Weight 172 Body Mass Index (BMI) 18.9 Weight Status Approriate GI Symptoms GI Symptoms None Last BM 12/01 Difficult in: None Skin Integrity/Comment: intact, redness Current %PO Good (75-100%) Estimated Nutritional Goals BEE in Kcals: Using Current wt Calories/Kcals/Kg 25-30 Kcals Calculated 6461-2515 Protein: Using Current wt Protein g/k-1.2 Protein Calculated 60-72 Fluid: ml 1500-1800ml (1ml/kcal) Nutritional Problem No current Nutrition Prob Problem n/A Intervention/Recommendation Comments 1. Continue with pureed diet as ordered. 2. Monitor PO intake, wt, and skin integrity 3. F/U as low risk in 7 days, 12/04-12/06 Expected Outcomes/Goals Expected Outcomes/Goals 1. PO intake to meet at least 75% of nutritional needs. 2. Wt stability, skin to remain intact
[2017-12-13] MEDS: Multivitamin w/ Minerals Tab PO SCH (21:28)
--- NOTE | 2017-12-14 13:20 | Internal Medicine Prog Note ---
Internal Medicine Subjective - Subjective Service Date: 12/14/17 Patient is:: awake, non-verbal, non-interactive, in bed, confused, stares blankly Per staff patient has:: no adverse event, no episodes of fall, poor appetite, noncompliant, tolerating meds Internal Medicine Objective - Physical Exam Vitals and I&O: Vital Signs Temp 97.1 F 12/14/17 06:24 Pulse 66 12/14/17 06:24 Resp 18 12/14/17 06:24 BP 122/53 12/14/17 06:24 Pulse Ox 96 12/14/17 06:24 Intake & Output 12/13/17 12/14/17 12/14/17 18:59 06:59 18:59 Intake Total 900 240 Balance 900 240 Intake: Oral 900 240 Other: # Voids 4 1 # Bowel Movements 1 Active Medications: Current Medications Acetaminophen (Tylenol) 650 mg PO Q4HR PRN PRN Reason: Mild Pain / Temp above 100 Stop: 01/25/18 21:04 Al Hydrox/Mg Hydrox/Simethicone (Maalox) 30 ml PO Q6HR PRN PRN Reason: GI DISTRESS Stop: 01/26/18 12:44 Albuterol Sulfate (Albuterol 2.5mg/3ml Neb Ud) 2.5 mg HHN Q2HR PRN PRN Reason: Shortness of Breath or Wheeze Stop: 01/26/18 12:44 Docusate Sodium (Colace) 200 mg PO HS [facility] Stop: 01/26/18 20:59 Last Admin: 12/13/17 21:28 Dose: 200 mg Donepezil HCl (Aricept) 10 mg PO HS [facility] Stop: 01/25/18 20:59 Last Admin: 12/13/17 21:28 Dose: 10 mg Guaifenesin (Robitussin) 200 mg PO Q4HR PRN PRN Reason: Cough or Congestion Stop: 01/26/18 12:44 Last Admin: 12/09/17 08:45 Dose: 200 mg Ipratropium [place] (Atrovent Neb 0.5mg/2.5ml) 0.5 mg HHN Q2HR PRN PRN Reason: Shortness of Breath or Wheeze Stop: 01/26/18 12:44 Lorazepam (Ativan) 0.5 mg PO Q4HR PRN; Protocol PRN Reason: Anxiety Stop: 12/26/17 21:04 Last Admin: 12/05/17 20:53 Dose: 0.5 mg Magnesium Hydroxide (Milk Of Magnesia) 30 ml PO HS PRN PRN Reason: Constipation Memantine (Namenda) 5 mg PO DAILY [facility] Stop: 01/27/18 08:59 Last Admin: 12/14/17 09:14 Dose: 5 mg Quetiapine Fumarate (Seroquel) 25 mg PO DAILY [facility] PRN Reason: Protocol Stop: 02/08/18 08:59 Last Admin: 12/14/17 09:14 Dose: 25 mg Quetiapine Fumarate (Seroquel) 50 mg PO HS [facility] PRN Reason: Protocol Stop: 02/08/18 10:48 Last Admin: 12/13/17 21:28 Dose: 50 mg Zolpidem Tartrate (Ambien) 5 mg PO HS PRN PRN Reason: Insomnia Stop: 01/25/18 21:04 Last Admin: 12/09/17 21:08 Dose: 5 mg General: lethargic, demented, appears older, NAD HEENT: NC/AT, PERRLA Neck: Supple, No JVD, deformity Cardiovascular: RRR, Normal S1, Normal S2, with murmur Abdomen: soft, thin, non-distended, positive bowel sound Extremities: excoriation, deformity Neurological: no change, lethargic, bedbound Internal Medicine Assmt/Plan - Assessment Assessment: psychosis gait instability generalized weakness dementia - Plan Plan: cont on fall precaution aspirtation precautionn dvt and gastritis prophylaxis dw rn Nutritional Asmnt/Malnutr-PDOC - Dietary Evaluation Malnutrition Findings (Please click <Entered> for more info): Nutritional Asmnt/Malnutrition Start: 11/30/17 10: 10 Text: Status: Complete Freq: Document 12/01/17 14:12 DARRICK (Rec: 12/01/17 14:20 DARRICK [email or web address]) Nutritional Asmnt/Malnutrition Patient General Information Nutritional Screening Moderate Risk Diagnosis psychosis Pertinent Medical Hx/Surgical Hx dementia, gait instability Subjective Information Per nurse notes, pt refused medications sometimes. Per EMR , PO intake 50-100%, avg 75%. Nurse stated pt eats well. Current Diet Order/ Nutrition Support Pureed Pertinent Medications colace, seroquel Pertinent Labs no labs Nutritional Hx/Data Height 5 ft 10 in Height (Calculated Centimeters) 177.8 Current Weight (lbs) 132 lb Weight (Calculated Kilograms) 59.9 Weight (Calculated Grams) 57366.2 [place] Body Weight 172 Body Mass Index (BMI) 18.9 Weight Status Approriate GI Symptoms GI Symptoms None Last BM 12/01 Difficult in: None Skin Integrity/Comment: intact, redness Current %PO Good (75-100%) Estimated Nutritional Goals BEE in Kcals: Using Current wt Calories/Kcals/Kg 25-30 Kcals Calculated 4781-4404 Protein: Using Current wt Protein g/k-1.2 Protein Calculated 60-72 Fluid: ml 1500-1800ml (1ml/kcal) Nutritional Problem No current Nutrition Prob Problem n/A Intervention/Recommendation Comments 1. Continue with pureed diet as ordered. 2. Monitor PO intake, wt, and skin integrity 3. F/U as low risk in 7 days, 12/04-12/06 Expected Outcomes/Goals Expected Outcomes/Goals 1. PO intake to meet at least 75% of nutritional needs. 2. Wt stability, skin to remain intact
--- NOTE | 2017-12-14 20:20 | Progress Notes ---
DATE: 12/14/2017 The patient in the hospital due to yelling episodes, screaming episodes, anger, unpredictability. He is somewhat calmer today versus yesterday, but remains highly impulsive, unpredictable. Staff noting he still curses, yells and screams. Medications were noted including doses and frequencies. Unable to verbalize a plan for self-care, very irritable on exam. ASSESSMENT: The patient unruly, aggressive, not safe for a lower level of care. We will continue to monitor. The patient is somewhat calmer today. JOB# [id number]
[2017-12-14] MEDS: Multivitamin w/ Minerals Tab PO SCH (22:00)
--- NOTE | 2017-12-15 12:27 | Internal Medicine Prog Note ---
Internal Medicine Subjective - Subjective Service Date: 12/15/17 Patient is:: awake, non-verbal, non-interactive, in bed, confused, stares blankly Per staff patient has:: no adverse event, no episodes of fall, poor appetite, noncompliant, tolerating meds Internal Medicine Objective - Physical Exam Vitals and I&O: Vital Signs Temp 96.8 F 12/15/17 06:07 Pulse 59 12/15/17 08:30 Resp 18 12/15/17 08:30 BP 122/56 12/15/17 06:07 Pulse Ox 94 12/15/17 08:30 Intake & Output 12/14/17 12/15/17 12/15/17 18:59 06:59 18:59 Intake Total 800 180 Balance 800 180 Intake: Oral 800 180 Other: # Voids 4 1 # Bowel Movements 2 Active Medications: Current Medications Acetaminophen (Tylenol) 650 mg PO Q4HR PRN PRN Reason: Mild Pain / Temp above 100 Stop: 01/25/18 21:04 Al Hydrox/Mg Hydrox/Simethicone (Maalox) 30 ml PO Q6HR PRN PRN Reason: GI DISTRESS Stop: 01/26/18 12:44 Albuterol Sulfate (Albuterol 2.5mg/3ml Neb Ud) 2.5 mg HHN Q2HR PRN PRN Reason: Shortness of Breath or Wheeze Stop: 01/26/18 12:44 Docusate Sodium (Colace) 200 mg PO [facility] Stop: 01/26/18 20:59 Last Admin: 12/14/17 22:00 Dose: 200 mg Donepezil HCl (Aricept) 10 mg PO [facility] Stop: 01/25/18 20:59 Last Admin: 12/14/17 22:00 Dose: 10 mg Guaifenesin (Robitussin) 200 mg PO Q4HR PRN PRN Reason: Cough or Congestion Stop: 01/26/18 12:44 Last Admin: 12/09/17 08:45 Dose: 200 mg Ipratropium [place] (Atrovent Neb 0.5mg/2.5ml) 0.5 mg HHN Q2HR PRN PRN Reason: Shortness of Breath or Wheeze Stop: 01/26/18 12:44 Lorazepam (Ativan) 0.5 mg PO Q4HR PRN; Protocol PRN Reason: Anxiety Stop: 12/26/17 21:04 Last Admin: 12/05/17 20:53 Dose: 0.5 mg Magnesium Hydroxide (Milk Of Magnesia) 30 ml PO HS PRN PRN Reason: Constipation Memantine (Namenda) 5 mg PO DAILY [facility] Stop: 01/27/18 08:59 Last Admin: 12/15/17 09:07 Dose: 5 mg Quetiapine Fumarate (Seroquel) 25 mg PO DAILY [facility] PRN Reason: Protocol Stop: 02/08/18 08:59 Last Admin: 12/15/17 09:08 Dose: 25 mg Quetiapine Fumarate (Seroquel) 50 mg PO HS [facility] PRN Reason: Protocol Stop: 02/08/18 10:48 Last Admin: 12/14/17 22:00 Dose: 50 mg Zolpidem Tartrate (Ambien) 5 mg PO HS PRN PRN Reason: Insomnia Stop: 01/25/18 21:04 Last Admin: 12/09/17 21:08 Dose: 5 mg General: lethargic, demented, appears older, NAD HEENT: NC/AT, PERRLA Neck: Supple, No JVD, deformity Cardiovascular: RRR, Normal S1, Normal S2, with murmur Abdomen: soft, thin, non-distended, positive bowel sound Extremities: excoriation, deformity Neurological: no change, lethargic, bedbound Internal Medicine Assmt/Plan - Assessment Assessment: psychosis gait instability generalized weakness dementia - Plan Plan: cont on fall precaution aspirtation precautionn dvt and gastritis prophylaxis dw rn Nutritional Asmnt/Malnutr-PDOC - Dietary Evaluation Malnutrition Findings (Please click <Entered> for more info): Nutritional Asmnt/Malnutrition Start: 11/30/17 10: 10 Text: Status: Complete Freq: Document 12/01/17 14:12 DARRICK (Rec: 12/01/17 14:20 DARRICK [email or web address]) Nutritional Asmnt/Malnutrition Patient General Information Nutritional Screening Moderate Risk Diagnosis psychosis Pertinent Medical Hx/Surgical Hx dementia, gait instability Subjective Information Per nurse notes, pt refused medications sometimes. Per EMR , PO intake 50-100%, avg 75%. Nurse stated pt eats well. Current Diet Order/ Nutrition Support Pureed Pertinent Medications colace, seroquel Pertinent Labs no labs Nutritional Hx/Data Height 5 ft 10 in Height (Calculated Centimeters) 177.8 Current Weight (lbs) 132 lb Weight (Calculated Kilograms) 59.9 Weight (Calculated Grams) 81918.2 [place] Body Weight 172 Body Mass Index (BMI) 18.9 Weight Status Approriate GI Symptoms GI Symptoms None Last BM 12/01 Difficult in: None Skin Integrity/Comment: intact, redness Current %PO Good (75-100%) Estimated Nutritional Goals BEE in Kcals: Using Current wt Calories/Kcals/Kg 25-30 Kcals Calculated 9299-5390 Protein: Using Current wt Protein g/k-1.2 Protein Calculated 60-72 Fluid: ml 1500-1800ml (1ml/kcal) Nutritional Problem No current Nutrition Prob Problem n/A Intervention/Recommendation Comments 1. Continue with pureed diet as ordered. 2. Monitor PO intake, wt, and skin integrity 3. F/U as low risk in 7 days, 12/04-12/06 Expected Outcomes/Goals Expected Outcomes/Goals 1. PO intake to meet at least 75% of nutritional needs. 2. Wt stability, skin to remain intact
--- NOTE | 2017-12-15 16:49 | Progress Notes ---
DATE: 12/15/2017 SUBJECTIVE: The patient in the hospital due to yelling episodes, screaming episodes. The patient is somewhat calmer today. He does encourage to yell at me. There may be some improvement. He remains somewhat calmer, not yelling and not screaming at this time. Medications were noted including doses and frequencies. He has been more compliant. Awake and alert on exam, but not answering any questions, not able to verbalize a plan for self-care. ASSESSMENT: The patient has been rather unruly and aggressive and agitated, but seems to be calmer today, more redirectable; however, he is very unpredictable and his behaviors can change at any time. We will continue to monitor to make sure that there is some consistency in his improvement. We will continue to adjust and titrate medications. We are also trying to confirm placement at this time as the patient is considered gravely disabled. It seems that he resides at the [facility], so when the patient is more stable, he can go back there. JOB# [id number]
[2017-12-15] MEDS: Multivitamin w/ Minerals Tab PO SCH (21:42)
--- NOTE | 2017-12-16 08:14 | Discharge Summary ---
DATE OF DISCHARGE: JUSTIFICATION FOR HOSPITALIZATION: The patient was brought to the hospital unruly, agitated, hostile, yelling, cursing, confused and paranoid. HISTORY OF PRESENT ILLNESS: An 82-year-old male with history of multiple medical problems, hypertension, hyperlipidemia, Alzheimer dementia, refusing medications, decompensating, paranoid, agitated, violent, assaultive towards staff. The patient highly confused on exam. PAST PSYCHIATRIC HISTORY: Dementia with behaviors. SOCIAL HISTORY: Noted. MEDICATIONS: Noted. MENTAL STATUS EXAMINATION: Please see full psych eval for details. PROVISIONAL DIAGNOSES: Dementia with behavioral disturbances; psychosis, unspecified; mood, unspecified; anxiety, unspecified. Medical: Please see full H and P. HOSPITAL COURSE: After initial assessment, the patient's medications were adjusted and titrated after admission. The patient remained quite unruly and difficult to control. His behaviors remained quite resistant to treatment; however, as the hospital course progressed, there was improvement noted. Toward the latter end of his hospitalization, he was calmer, more cooperative, no longer yelling, no longer cursing, no longer screaming. Staff noting robust improvement. The patient with far less paranoia, far less agitation, no longer violent, no hitting episodes and he was discharged once placement was confirmed. CONDITION UPON DISCHARGE: Improved. Allowing ADLs. No longer hitting. Fair eye contact. Awake, alert but confused. No SI. No HI. No overt psychotic symptoms. Insight and judgment still poor, but impulse control better, no longer hitting, able to control anger better. DISCHARGE DIAGNOSES: Dementia with behavioral disturbances; psychosis, unspecified; mood, unspecified; anxiety, unspecified. Medical: Please see full H and P. PROGNOSIS: The patient follows up with outpatient mental health services and remains compliant with treatment. Prognosis will improve, otherwise guarded. JOB# [id number]
--- NOTE | 2017-12-16 13:49 | Internal Medicine Prog Note ---
Internal Medicine Subjective - Subjective Service Date: 12/16/17 Patient is:: awake, non-verbal, non-interactive, in bed, confused, stares blankly Per staff patient has:: no adverse event, no episodes of fall, poor appetite, noncompliant, tolerating meds Internal Medicine Objective - Physical Exam Vitals and I&O: Vital Signs Temp 97 F 12/16/17 06:24 Pulse 55 12/16/17 07:29 Resp 18 12/16/17 07:29 BP 130/65 12/16/17 06:24 Pulse Ox 94 12/16/17 07:29 Intake & Output 12/15/17 12/16/17 12/16/17 18:59 06:59 18:59 Intake Total 1400 120 Balance 1400 120 Intake: Oral 1400 120 Other: # Voids 3 3 # Bowel Movements 1 Active Medications: Current Medications Acetaminophen (Tylenol) 650 mg PO Q4HR PRN PRN Reason: Mild Pain / Temp above 100 Stop: 01/25/18 21:04 Al Hydrox/Mg Hydrox/Simethicone (Maalox) 30 ml PO Q6HR PRN PRN Reason: GI DISTRESS Stop: 01/26/18 12:44 Albuterol Sulfate (Albuterol 2.5mg/3ml Neb Ud) 2.5 mg HHN Q2HR PRN PRN Reason: Shortness of Breath or Wheeze Stop: 01/26/18 12:44 Docusate Sodium (Colace) 200 mg PO HS [facility] Stop: 01/26/18 20:59 Last Admin: 12/15/17 21:42 Dose: 200 mg Donepezil HCl (Aricept) 10 mg PO HS [facility] Stop: 01/25/18 20:59 Last Admin: 12/15/17 21:42 Dose: 10 mg Guaifenesin (Robitussin) 200 mg PO Q4HR PRN PRN Reason: Cough or Congestion Stop: 01/26/18 12:44 Last Admin: 12/09/17 08:45 Dose: 200 mg Ipratropium [place] (Atrovent Neb 0.5mg/2.5ml) 0.5 mg HHN Q2HR PRN PRN Reason: Shortness of Breath or Wheeze Stop: 01/26/18 12:44 Lorazepam (Ativan) 0.5 mg PO Q4HR PRN; Protocol PRN Reason: Anxiety Stop: 12/26/17 21:04 Last Admin: 12/05/17 20:53 Dose: 0.5 mg Magnesium Hydroxide (Milk Of Magnesia) 30 ml PO HS PRN PRN Reason: Constipation Memantine (Namenda) 5 mg PO DAILY [facility] Stop: 01/27/18 08:59 Last Admin: 12/16/17 08:08 Dose: 5 mg Quetiapine Fumarate (Seroquel) 25 mg PO DAILY [facility] PRN Reason: Protocol Stop: 02/08/18 08:59 Last Admin: 12/16/17 08:08 Dose: 25 mg Quetiapine Fumarate (Seroquel) 50 mg PO HS [facility] PRN Reason: Protocol Stop: 02/08/18 10:48 Last Admin: 12/15/17 21:42 Dose: 50 mg Zolpidem Tartrate (Ambien) 5 mg PO HS PRN PRN Reason: Insomnia Stop: 01/25/18 21:04 Last Admin: 12/15/17 21:42 Dose: 5 mg General: lethargic, demented, appears older, NAD HEENT: NC/AT, PERRLA Neck: Supple, No JVD, deformity Cardiovascular: RRR, Normal S1, Normal S2, with murmur Abdomen: soft, thin, non-distended, positive bowel sound Extremities: excoriation, deformity Neurological: no change, lethargic, bedbound Internal Medicine Assmt/Plan - Assessment Assessment: psychosis gait instability generalized weakness dementia - Plan Plan: cont on fall precaution aspirtation precautionn dvt and gastritis prophylaxis dw rn Nutritional Asmnt/Malnutr-PDOC - Dietary Evaluation Malnutrition Findings (Please click <Entered> for more info): Nutritional Asmnt/Malnutrition Start: 11/30/17 10: 10 Text: Status: Complete Freq: Document 12/01/17 14:12 DARRICK (Rec: 12/01/17 14:20 DARRICK [email or web address]) Nutritional Asmnt/Malnutrition Patient General Information Nutritional Screening Moderate Risk Diagnosis psychosis Pertinent Medical Hx/Surgical Hx dementia, gait instability Subjective Information Per nurse notes, pt refused medications sometimes. Per EMR , PO intake 50-100%, avg 75%. Nurse stated pt eats well. Current Diet Order/ Nutrition Support Pureed Pertinent Medications colace, seroquel Pertinent Labs no labs Nutritional Hx/Data Height 5 ft 10 in Height (Calculated Centimeters) 177.8 Current Weight (lbs) 132 lb Weight (Calculated Kilograms) 59.9 Weight (Calculated Grams) 69528.2 [place] Body Weight 172 Body Mass Index (BMI) 18.9 Weight Status Approriate GI Symptoms GI Symptoms None Last BM 12/01 Difficult in: None Skin Integrity/Comment: intact, redness Current %PO Good (75-100%) Estimated Nutritional Goals BEE in Kcals: Using Current wt Calories/Kcals/Kg 25-30 Kcals Calculated 8521-4618 Protein: Using Current wt Protein g/k-1.2 Protein Calculated 60-72 Fluid: ml 1500-1800ml (1ml/kcal) Nutritional Problem No current Nutrition Prob Problem n/A Intervention/Recommendation Comments 1. Continue with pureed diet as ordered. 2. Monitor PO intake, wt, and skin integrity 3. F/U as low risk in 7 days, 12/04-12/06 Expected Outcomes/Goals Expected Outcomes/Goals 1. PO intake to meet at least 75% of nutritional needs. 2. Wt stability, skin to remain intact
== END 2017-12-16 19:15 | DRG 885 ==
LOC: GERO 16:55
PROVIDERS: ADMIT Psychiatry & Neurology Psychiatry; ATTEND Psychiatry & Neurology Psychiatry
DX: F29 Unspecified psychosis not due to a substance or known physiological condition (principal); F02.81 Dementia in other diseases classified elsewhere, unspecified severity, with behavioral disturbance; E46 Unspecified protein-calorie malnutrition; Z68.1 Body mass index [BMI] 19.9 or less, adult; G30.9 Alzheimer's disease, unspecified; F39 Unspecified mood [affective] disorder; F41.9 Anxiety disorder, unspecified; R26.9 Unspecified abnormalities of gait and mobility; I10 Essential (primary) hypertension; E78.5 Hyperlipidemia, unspecified
CPT/HCPCS: 94760; G0410; Z7610